=== PATIENT | male | born 1965 | race Caucasian/White ===

== ENCOUNTER 2017-08-21 09:25 | Inpatient (IN) | payer SELFPAY ==
[~2017-08-21] VITALS: Ht 188 cm; Wt 127.0 kg
[2017-08-21 09:40] VITALS: BP 126/93
--- NOTE | 2017-08-21 10:06 | Emergency Room Report ---
History of Present Illness General Chief Complaint: Dyspnea/Respdistress Source: Patient Present Illness HPI 52-year-old male, HIV positive, stopped his treatment in April, has not had a recent CD4 count, was undetectable this past January, presenting with shortness of breath, fever. Patient states that he was walking his dog this morning, became short of breath. States that he has had some intermittent fevers with a nonproductive cough for the last 3 days. One episode of diarrhea. No vomiting. No sick contacts recent travel Allergies: Coded Allergies: No Known Allergies (Verified , 08/23/11) Patient History Past Medical History: see triage record Past Surgical History: none Pertinent Family History: none Reviewed Nursing Documentation: PMH: Agreed, PSxH: Agreed Review of Systems All Other Systems: negative except mentioned in HPI Physical Exam Vital Signs Date Time Temp Pulse Resp B/P (MAP) Pulse Ox O2 Delivery O2 Flow Rate FiO2 08/21/17 09:09 99.1 140 19 106/74 93 Room Air Sp02 EP Interpretation: reviewed, normal General Appearance: alert, GCS 15, non-toxic, mild distress Head: normocephalic, atraumatic Eyes: bilateral eye normal inspection, bilateral eye PERRL, bilateral eye EOMI ENT: normal ENT inspection, normal pharynx, normal voice, moist mucus membranes Neck: normal inspection, full range of motion, supple Respiratory: normal inspection, lungs clear, normal breath sounds, no respiratory distress, no retraction, no wheezing, speaking full sentences, chest symmetrical Cardiovascular #1: normal inspection, regular rate, rhythm, no edema, normal capillary refill Cardiovascular #2: 2+ radial (R), 2+ radial (L) Gastrointestinal: normal inspection, non tender, soft, non-distended, no guarding Genitourinary: no CVA tenderness Musculoskeletal: normal inspection, back normal, normal range of motion, non- tender Neurologic: normal inspection, alert, oriented x3, responsive, motor strength/ tone normal, sensory intact, normal gait, speech normal Psychiatric: normal inspection, judgement/insight normal, memory normal Skin: normal inspection, normal color, no rash, warm/dry, well hydrated, normal turgor Procedures Critical Care Time Critical Care Time 40 minutes of CC time 52-year-old male, shortness of breath, cough, hx of HIV VS: Tachycardic PLAN: IV access, labs, lactate, troponin, Blood/Urine Cx, Abx, IVF Anticipate admission to Tele vs. PATRICIA CC time also includes review of labs, review of EMR, discussion with family and paperwork from SNF, d/w hospitalist CC could include dosing of pressors, additional Abx CC time does not include procedures Medical Decision Making Diagnostic Impression: Primary Impression: Dyspnea Additional Impressions: NSTEMI (non-ST elevated myocardial infarction) Hypokalemia HIV (human immunodeficiency virus infection) Pneumonia ER Course 52-year-old male, presents with cough fever shortness of breath for 2-3 days, HIV-positive not on medication DDX: Viral URI vs. pneumonia Plan: Labs, CXR ER course: Patient given tylenol IVF CXR with instertitial infiltrate - developing R sided pna - levaquin given hypokalemia - supplemented trop noted to be mildly elevated - ASA given HR improved to 100 Disposition: Patient is to be admitted to tele D/W hospitalist Dr Albrecht Please note that this Emergency Department Report was dictated using [email or web address] sales representative technology software, occasionally this can lead to erroneous entry secondary to interpretation by the dictation equipment EKG Diagnostic Results EP Interpretation: Yes Rate: Tachycardic Rhythm: NSR ST Segments: No acute changes ASA given to patient: No Rhythm Strip EP Interpretation: Yes Rate: 130 Rhythm: NSR, no PVCs, no ectopy Chest X-ray CXR: Ordered: Yes 1 view Indication: Cough EP interpretation: Yes Interpretation: Interstitial infiltrate mostly on right side Impression: Interstitial infiltrate mostly in right-sided Electronically signed by Jill Boyd MD Laboratory Tests Test 08/21/17 09:20 08/21/17 09:40 Urine Color Yellow Urine Appearance Clear Urine pH 7 (4.5-8.0) Urine Specific [place] 1.010 (1.005-1.035) Urine Protein 1+ (NEGATIVE) H Urine Glucose (UA) Negative (NEGATIVE) Urine Ketones Negative (NEGATIVE) Urine Occult Blood Negative (NEGATIVE) Urine Nitrite Negative (NEGATIVE) Urine Bilirubin Negative (NEGATIVE) Urine Urobilinogen Normal MG/DL (0.0-1.0) Urine Leukocyte Esterase Negative (NEGATIVE) Urine RBC 0-2 /HPF (0 - 0) H Urine WBC 0-2 /HPF (0 - 0) Urine Squamous Epithelial Cells Occasional /LPF Urine Bacteria Occasional /HPF (NONE) Urine Mucus Few /LPF (NONE/OCC) H White Blood Count 9.9 K/UL (4.8-10.8) Red Blood Count 5.36 M/UL (4.70-6.10) Hemoglobin 15.4 G/DL (14.2-18.0) Hematocrit 46.1 % (42.0-52.0) Mean Corpuscular Volume 86 FL (80-99) Mean Corpuscular Hemoglobin 28.8 PG (27.0-31.0) Mean Corpuscular Hemoglobin Concent 33.4 G/DL (32.0-36.0) Red Cell Distribution Width 11.6 % (11.6-14.8) Platelet Count 115 K/UL (150-450) L Mean Platelet Volume 16.5 FL (6.5-10.1) H Neutrophils (%) (Auto) % (45.0-75.0) Lymphocytes (%) (Auto) % (20.0-45.0) Monocytes (%) (Auto) % (1.0-10.0) Eosinophils (%) (Auto) % (0.0-3.0) Basophils (%) (Auto) % (0.0-2.0) Differential Total Cells Counted 100 Neutrophils % (Manual) 72 % (45-75) Lymphocytes % (Manual) 17 % (20-45) L Monocytes % (Manual) 8 % (1-10) Eosinophils % (Manual) 1 % (0-3) Basophils % (Manual) 0 % (0-2) Band Neutrophils 2 % (0-8) Platelet Estimate Decreased L Platelet Morphology Clumped Platelets 1+ Red Blood Cell Morphology Normal Sodium Level 137 MMOL/L (136-145) Potassium Level 4.2 MMOL/L (3.5-5.1) Chloride Level 100 MMOL/L (98-107) Carbon Dioxide Level 30 MMOL/L (21-32) Anion Gap 8 mmol/L (5-15) Blood Urea Nitrogen 11 mg/dL (7-18) Creatinine 1.1 MG/DL (0.55-1.30) Estimate Glomerular Filtration Rate > 60 mL/min (>60) Glucose Level 106 MG/DL (74-106) Lactic Acid Level 2.70 mmol/L (0.66-2.22) H Calcium Level 8.2 MG/DL (8.5-10.1) L Total Bilirubin 1.3 MG/DL (0.2-1.0) H Direct Bilirubin 0.2 MG/DL (0.0-0.3) Aspartate Amino Transferase (AST) 28 U/L (15-37) Alanine Aminotransferase (ALT) 36 U/L (12-78) Alkaline Phosphatase 72 U/L (46-116) Troponin I 0.390 ng/mL (0.000-0.056) Total Protein 8.9 G/DL (6.4-8.2) H Albumin 3.9 G/DL (3.4-5.0) Globulin 5.0 g/dL Last Vital Signs Date Time Temp Pulse Resp B/P (MAP) Pulse Ox O2 Delivery O2 Flow Rate FiO2 08/21/17 09:40 99.0 133 16 126/93 95 Room Air Disposition: ADMITTED INPATIENT Condition: Serious Scripts No Active Prescriptions or Reported Jefs Jill Boyd M.D. Aug 21, 2017 10:06
[2017-08-21] MEDS ORDERED: Acetaminophen 500mg (ES) tab ORAL ONE (10:15)
[2017-08-21 10:40] LABS: ANION GAP 8 mmol/L (5-15); BLOOD UREA NITROGEN 11 mg/dL (7-18); CALCIUM 8.2 MG/DL (8.5-10.1); CARBON DIOXIDE 30 MMOL/L (21-32); CHLORIDE 100 MMOL/L (98-107); CREATININE 1.1 MG/DL (0.55-1.30); POTASSIUM 4.2 MMOL/L (3.5-5.1); SODIUM 137 MMOL/L (136-145)
[2017-08-21 10:41] LABS: HEMATOCRIT 46.1 % (42.0-52.0); HEMOGLOBIN 15.4 G/DL (14.2-18.0); MEAN CORPUSCULAR VOLUME 86 FL (80-99); RED BLOOD COUNT 5.36 M/UL (4.70-6.10); RED CELL DISTRIBUTION WIDTH 11.6 % (11.6-14.8); WHITE BLOOD COUNT 9.9 K/UL (4.8-10.8)
[2017-08-21 10:46] LABS: APPEARANCE,URINE CLEAR; BILIRUBIN, URINE NEGATIVE (NEGATIVE); GLUCOSE, URINE (UA) NEGATIVE (NEGATIVE); KETONES,URINE NEGATIVE (NEGATIVE); LEUKOCYTE ESTERASE ,URINE NEGATIVE (NEGATIVE); NITRITE,URINE NEGATIVE (NEGATIVE); PH,URINE 7 (4.5-8.0); PROTEIN,URINE 1+ (NEGATIVE); UROBILINOGEN,URINE NORMAL MG/DL (0.0-1.0)
[2017-08-21 10:46] LABS: ALANINE AMINOTRANSFERASE 36 U/L (12-78); ALBUMIN 3.9 G/DL (3.4-5.0); ALKALINE PHOSPHATASE 72 U/L (46-116); ASPARTATE AMINO TRANSFERASE 28 U/L (15-37); BILIRUBIN,TOTAL 1.3 MG/DL (0.2-1.0)
[2017-08-21 10:52] LABS: COLOR,URINE YELLOW
[2017-08-21 10:58] LABS: BILIRUBIN,DIRECT 0.2 MG/DL (0.0-0.3)
[2017-08-21 11:27] LABS: PLATELET COUNT 115 K/UL (150-450)
--- NOTE | 2017-08-21 11:33 | Diagnostic Imaging Report ---
Indication: Dyspnea Technique: XRAY Chest 1v Comparison: None Findings: Heart size and mediastinal contours are within normal limits. There is slight interstitial prominence, left greater than right. Patchy right basilar opacity noted. No pleural effusion. No pneumothorax. Impression: Interstitial prominence, right greater than left with patchy right basilar opacity. Correlate clinically to exclude developing pneumonia. Follow-up exam recommended.
[2017-08-21 15:00] VITALS: BP 127/74
--- NOTE | 2017-08-21 16:27 | Consultation ---
Consult Note Consult Note dict community acquired pneumonia ACS, high troponin HIV zithro/ceftriaxone T cells/HIV load VIDA ARCEO Aug 21, 2017 16:27
[2017-08-21] MEDS ORDERED: Azithromycin 250mg tab ORAL ONE (16:30)
--- NOTE | 2017-08-21 17:15 | Consultation ---
DATE OF CONSULTATION: 08/21/2017 PULMONARY CONSULTATION CHIEF COMPLAINT: Short of breath. HISTORY OF PRESENT ILLNESS: This is a 52-year-old man with human immunodeficiency virus. He says that he came to the emergency department today because of several days of increasing shortness of breath. He states that he cannot walk more than 10 feet walk with his dog before he has to stop and catch his breath. He had a low-grade fever up to about 100.5 and some nonproductive cough over the past few days. He has no vomiting, but had minimal diarrhea. He has a history of human immunodeficiency virus and he has been off his HIV medications due to insurance problems for the past three months. He states his viral load was undetectable when he was on medication, but does not know his T-cell count. MEDICATIONS: None. ALLERGIES: None. REVIEW OF SYSTEMS: Otherwise unremarkable. He has not lost a significant amount of weight. PHYSICAL EXAMINATION: GENERAL: The patient is alert and responsive. He is not in distress. VITAL SIGNS: When he arrived in the emergency department, his heart rate was 140, respirations 19, temp 99.1, and blood pressure 106/74. Since that time, his heart rate has improved to 106 and respirations 14 and room air saturation is 93% to 95%. He is overweight. HEENT: The head is normocephalic. NECK: No jugular venous distention. CHEST: Fairly clear. CARDIAC: Rhythm is regular. Tachycardia. ABDOMEN: Soft and nontender. EXTREMITIES: No clubbing, cyanosis, or edema. LABORATORY DATA: Laboratory studies show urinalysis is negative. The white count is 9900, hemoglobin is 15.4, and platelets 115,000. Chemistry shows an elevated lactic acid, mild increase in bilirubin, and troponin is 0.39. Total protein is elevated at 8.9. Chest x-ray shows focal right base infiltrate. IMPRESSION: 1. Dyspnea. 2. Pneumonia, unlikely to be pneumocystis, more likely bacterial or viral. 3. Possible acute myocardial infarction. 4. Human immunodeficiency virus, without medication for three months. 5. Thrombocytopenia. 6. Elevated protein level and bilirubin. PLAN: 1. The patient shall be admitted. 2. Antibacterial antibiotics for community-acquired pneumonia would be appropriate here. 3. We will check his T-cell panel and viral load. Thank you for asking me to see him in consultation. Patricio Donovan M.D. DR: JULIO CESAR JOB#: [id number] CC: Patricio Donovan M.D.; Fax#: [phone] ALYSSA MENDIOLA M.D. ; FAX#: [phone]
[2017-08-21 18:30] VITALS: BP 119/82
[2017-08-22] VITALS (10 sets, daily range): BP systolic 98–138; BP diastolic 55–90
[2017-08-22] MEDS: Albuterol/Ipratropium 3ml neb HHN PRN ×3 (02:51→17:07)
[2017-08-22] MEDS ORDERED: Albuterol/Ipratropium 3ml neb HHN SCH (05:00)
[2017-08-22] MEDS: Azithromycin 250mg tab ORAL SCH (08:36)
[2017-08-22] MEDS: cefTRIAXone 1 GM in NS 55 ML IVPB SCH (09:23)
[2017-08-22 09:44] LABS: HEMOGLOBIN 13.8 G/DL (14.2-18.0); MEAN CORPUSCULAR VOLUME 87 FL (80-99); PLATELET COUNT 71 K/UL (150-450); RED BLOOD COUNT 4.84 M/UL (4.70-6.10); RED CELL DISTRIBUTION WIDTH 11.8 % (11.6-14.8); WHITE BLOOD COUNT 9.6 K/UL (4.8-10.8)
[2017-08-22 10:02] LABS: ANION GAP 9 mmol/L (5-15); BLOOD UREA NITROGEN 14 mg/dL (7-18); CALCIUM 8.1 MG/DL (8.5-10.1); CARBON DIOXIDE 26 MMOL/L (21-32); CHLORIDE 100 MMOL/L (98-107); POTASSIUM 4.4 MMOL/L (3.5-5.1); SODIUM 135 MMOL/L (136-145)
--- NOTE | 2017-08-22 12:06 | Diagnostic Imaging Report ---
Indication: Shortness of breath, fever. HIV positive. Technique: CT scan of the chest was performed after administration of intravenous contrast utilizing automated exposure control. Axial, sagittal and coronal reformats obtained. Comparison: No prior chest CTs available for comparison. Correlation made to concurrent chest radiograph. Findings: There are scattered, patchy areas of groundglass opacification in the lungs bilaterally, most pronounced in the right lower lobe. There are trace bilateral pleural effusions. There is no pneumothorax. Heart size within normal limits. There is trace pericardial fluid. The thoracic aorta is normal in caliber. No evidence suggest aortic dissection. Origins of the great vessels are widely patent. The main pulmonary artery is enlarged, measuring up to 3.9 cm in diameter. This may be related to pulmonary hypertension. There are small mediastinal and bilateral axillary lymph nodes. Imaged thyroid is grossly unremarkable. There is a small hiatal hernia with adjacent prominent lymph nodes. There is probable fatty infiltration of the liver and mild splenomegaly. There are multilevel degenerative changes of the thoracic spine. No acute osseous abnormality is seen. Impression: Patchy bilateral groundglass opacities, most pronounced in the right lower lobe. Findings are nonspecific and may infectious or inflammatory etiology. Infectious etiologies would include atypical and fungal infections. Clinical correlation recommended. Multiple prominent nonspecific mediastinal lymph nodes. Enlarged main pulmonary artery which may be related to pulmonary hypertension. Probable hepatic steatosis. Probable splenomegaly. This corresponds with the [facility] preliminary report.
--- NOTE | 2017-08-22 12:39 | Pulmonology Progress Note ---
Assessment/Plan Assessment/Plan 1. Dyspnea. 2. Pneumonia, possible pneumocystis, more likely bacterial or viral. 3. Possible acute myocardial infarction. 4. Human immunodeficiency virus, without medication for three months. 5. Thrombocytopenia. 6. Elevated protein level and bilirubin. note high LDH and interstitial disease on CT feeling better rec ID consult may add PCP coverage Subjective Constitutional: Reports: fever Respiratory: Reports: productive cough, shortness of breath Allergies: Coded Allergies: No Known Allergies (Verified , 08/23/11) Objective Last 24 Hour Vital Signs Date Time Temp Pulse Resp B/P (MAP) Pulse Ox O2 Delivery O2 Flow Rate FiO2 08/22/17 10:43 36 08/22/17 10:43 95 20 96 Nasal Cannula 2.0 28 08/22/17 10:40 95 20 Nasal Cannula 2.0 08/22/17 10:40 Nasal Cannula 2.0 28 08/22/17 10:40 96 Nasal Cannula 2.0 28 08/22/17 08:00 99.7 83 18 116/72 95 Nasal Cannula 2.0 08/22/17 08:00 107 08/22/17 04:00 98.0 77 20 138/60 98 Room Air 08/22/17 04:00 97 08/22/17 03:29 98.8 08/22/17 02:54 91 18 98 Nasal Cannula 2.0 28 08/22/17 02:48 36 08/22/17 02:48 99 20 96 Nasal Cannula 2.0 28 08/22/17 02:15 100.1 98 18 111/73 91 Nasal Cannula 2.0 98 08/22/17 01:29 98.0 100 18 122/88 94 Nasal Cannula 2.0 90 08/22/17 01:13 98.0 90 18 122/88 94 Nasal Cannula 2.0 08/22/17 00:00 99.2 100 18 128/90 94 Nasal Cannula 2.0 08/21/17 18:30 99.2 100 18 119/82 94 Nasal Cannula 2.0 08/21/17 16:15 98 20 Nasal Cannula 2.0 08/21/17 15:00 106 14 127/74 95 Room Air Intake and Output 08/21/17 08/22/17 19:00 07:00 Intake Total 0 ml Balance 0 ml Intake Oral 0 ml # Voids 2 General Appearance: no acute distress Respiratory/Chest: lungs clear Cardiovascular: normal rate Abdomen: soft, non tender Microbiology Date/Time Source Procedure Growth Status 08/21/17 11:20 Nasal Nares Influenza Types A,B Antigen (RUBEN) - Final Complete Laboratory Tests 08/21/17 18:20: White Blood Count [Pending], Lymphocytes [Pending], Percent CD3 Cells [Pending] , Absolute CD3 Count [Pending], Percent CD4 Cells [Pending], Absolute CD4 Count [Pending], T-Lymphocyte CD4/CD8 Ratio [Pending], Percent CD8 Cells [Pending], Absolute CD8 Count [Pending], HIV-1 RNA (PCR) log10 Value [Pending], HIV-1 RNA Ultraquantitative (PCR) [Pending] 08/22/17 08:45: White Blood Count 9.6, Red Blood Count 4.84, Hemoglobin 13.8L, Hematocrit 42.0, Mean Corpuscular Volume 87, Mean Corpuscular Hemoglobin 28.5, Mean Corpuscular Hemoglobin Concent 32.8, Red Cell Distribution Width 11.8, Platelet Count 71L, Mean Platelet Volume 8.1, Neutrophils (%) (Auto) , Lymphocytes (%) (Auto) , Monocytes (%) (Auto) , Eosinophils (%) (Auto) , Basophils (%) (Auto) , Differential Total Cells Counted 100, Neutrophils % (Manual) 64, Lymphocytes % ( Manual) 24, Monocytes % (Manual) 11H, Eosinophils % (Manual) 1, Basophils % ( Manual) 0, Band Neutrophils 0, Platelet Estimate DecreasedL, Platelet Morphology , Clumped Platelets 1+, Red Blood Cell Morphology Normal, Sodium Level 135L, Potassium Level 4.4, Chloride Level 100, Carbon Dioxide Level 26, Anion Gap 9, Blood Urea Nitrogen 14, Creatinine 1.0, Estimat Glomerular Filtration Rate > 60, Glucose Level 114H, Calcium Level 8.1L, Lactate Dehydrogenase 372H, Troponin I 0.355H, Legionella pneumophila Group 1 Ab [ Pending], Legionella pneumophilia IgM Group 1 [Pending], Mycoplasma pneumoniae IgG Antibody [Pending], Mycoplasma pneumoniae IgM Ab Titer [Pending] Current Medications Medications (Trade) Dose Ordered Sig/Jameel Route PRN Reason Start Time Stop Time Status Last Admin Dose Admin Acetaminophen (Tylenol) 650 mg Q4H PRN ORAL pain/fever >100 08/22/17 02:30 09/21/17 01:29 08/22/17 11:57 Albuterol/ Ipratropium (Albuterol/ Ipratropium) 3 ml Q4HR PRN HHN Shortness of Breath 08/22/17 05:00 08/27/17 04:59 08/22/17 10:43 Azithromycin (Zithromax) 250 mg DAILY ORAL 08/22/17 09:00 08/29/17 08:59 08/22/17 08:36 Ceftriaxone Sodium 1 gm/ Sodium Chloride 55 ml @ 110 mls/hr Q24H IVPB 08/22/17 09:00 08/29/17 08:59 08/22/17 09:23 Guaifenesin/ Dextromethorphan (Robitussin DM) 5 ml Q4H PRN ORAL For Cough 08/22/17 01:30 09/21/17 01:29 VIDA ARCEO Aug 22, 2017 12:39
--- NOTE | 2017-08-22 15:41 | Cardiology Report ---
APPROVED REPORT EXAM: Two-dimensional and M-mode echocardiogram with Doppler and color Doppler. INDICATION Chest Pain M-Mode DIMENSIONS IVSd1.9 (0.7-1.1cm)Left Atrium (MM)2.8 (1.6-4.0cm) LVDd3.7 (3.5-5.6cm)Aortic Root4.3 (2.0-3.7cm) PWd1.5 (0.7-1.1cm)Aortic Cusp Exc.1.9 (1.5-2.0cm) IVSs2.7 cm LVDs2.2 (2.5-4.0cm) PWs1.5 cm Technically difficult study due to poor acoustical windows . Normal left ventricular chamber size, systolic function and wall motion to extent visualized. Left ventricular ejection fraction estimated to be 60%. No evidence of ventricular hypertrophy . No evidence of pericardial effusion All other cardiac chamber size are within normal limits. Mild Thickened mitral valve leaflets with normal excursion. Mild Mitral annulus and aortic root calcification. Pulmonic valve not well visualized. Normal tricuspid valve structure. IVC at normal size with physiologic collapse . A color flow and spectral Doppler study was performed and revealed: No aortic regurgitation. Mild mitral regurgitation. Mitral diastolic velocities suggest reduced left ventricular relaxation c/w mild LV diastolic dysfunction (Grade I ). Mild tricuspid regurgitation. Tricuspid systolic velocities suggests peak right ventricular systolic pressure of 37 mmHg consistent with mild pulmonary hypertension. No Pulmonic regurgitation present.
--- NOTE | 2017-08-22 16:17 | Cardiology Report ---
APPROVED REPORT EKG Measurement Heart [id number] Sinus tachycardia Incomplete right bundle branch block Left anterior fascicular block Abnormal ECG
--- NOTE | 2017-08-22 16:28 | Cardiac Electrophysiology PN ---
Subjective Subjective Cardiology consult dictated. [id number] Objective Last 24 Hour Vital Signs Date Time Temp Pulse Resp B/P (MAP) Pulse Ox O2 Delivery O2 Flow Rate FiO2 08/22/17 12:56 99.7 08/22/17 12:00 104 08/22/17 10:43 36 08/22/17 10:43 95 20 96 Nasal Cannula 2.0 28 08/22/17 10:40 95 20 Nasal Cannula 2.0 08/22/17 10:40 Nasal Cannula 2.0 28 08/22/17 10:40 96 Nasal Cannula 2.0 28 08/22/17 08:00 99.7 83 18 116/72 95 Nasal Cannula 2.0 08/22/17 08:00 107 08/22/17 04:00 98.0 77 20 138/60 98 Room Air 08/22/17 04:00 97 08/22/17 02:54 91 18 98 Nasal Cannula 2.0 28 08/22/17 02:48 36 08/22/17 02:48 99 20 96 Nasal Cannula 2.0 28 08/22/17 02:15 100.1 98 18 111/73 91 Nasal Cannula 2.0 98 08/22/17 01:29 98.0 100 18 122/88 94 Nasal Cannula 2.0 90 08/22/17 01:13 98.0 90 18 122/88 94 Nasal Cannula 2.0 08/22/17 00:00 99.2 100 18 128/90 94 Nasal Cannula 2.0 08/21/17 18:30 99.2 100 18 119/82 94 Nasal Cannula 2.0 Intake and Output 08/21/17 08/22/17 19:00 07:00 Intake Total 0 ml Balance 0 ml Intake Oral 0 ml # Voids 2 Laboratory Tests Test 08/21/17 18:20 08/22/17 08:45 08/22/17 15:00 White Blood Count 6.1 x10E3/uL (3.4-10.8) 9.6 K/UL (4.8-10.8) Lymphocytes 30 % (Not Estab.) Nucleated Red Blood Cells (.) Absolute Lymphocytes (Cell Immunity 1.9 x10E3/uL (0.7-3.1) Percent CD3 Cells 86.8 % (57.5-86.2) H Absolute CD3 Count 1649 /uL (622-2402) Percent CD4 Cells 10.1 % (30.8-58.5) L Absolute CD4 Count 192 /uL (359-1519) L T-Lymphocyte CD4/CD8 Ratio 0.13 (0.92-3.72) L Percent CD8 Cells 77.9 % (12.0-35.5) H Absolute CD8 Count 1480 /uL (109-897) H HIV-1 RNA (PCR) log10 Value Pending HIV-1 RNA Ultraquantitative (PCR) Pending Red Blood Count 4.84 M/UL (4.70-6.10) Hemoglobin 13.8 G/DL (14.2-18.0) L Hematocrit 42.0 % (42.0-52.0) Mean Corpuscular Volume 87 FL (80-99) Mean Corpuscular Hemoglobin 28.5 PG (27.0-31.0) Mean Corpuscular Hemoglobin Concent 32.8 G/DL (32.0-36.0) Red Cell Distribution Width 11.8 % (11.6-14.8) Platelet Count 71 K/UL (150-450) L Mean Platelet Volume 8.1 FL (6.5-10.1) Neutrophils (%) (Auto) % (45.0-75.0) Lymphocytes (%) (Auto) % (20.0-45.0) Monocytes (%) (Auto) % (1.0-10.0) Eosinophils (%) (Auto) % (0.0-3.0) Basophils (%) (Auto) % (0.0-2.0) Differential Total Cells Counted 100 Neutrophils % (Manual) 64 % (45-75) Lymphocytes % (Manual) 24 % (20-45) Monocytes % (Manual) 11 % (1-10) H Eosinophils % (Manual) 1 % (0-3) Basophils % (Manual) 0 % (0-2) Band Neutrophils 0 % (0-8) Platelet Estimate Decreased L Platelet Morphology Clumped Platelets 1+ Red Blood Cell Morphology Normal Sodium Level 135 MMOL/L (136-145) L Potassium Level 4.4 MMOL/L (3.5-5.1) Chloride Level 100 MMOL/L (98-107) Carbon Dioxide Level 26 MMOL/L (21-32) Anion Gap 9 mmol/L (5-15) Blood Urea Nitrogen 14 mg/dL (7-18) Creatinine 1.0 MG/DL (0.55-1.30) Estimat Glomerular Filtration Rate > 60 mL/min (>60) Glucose Level 114 MG/DL (74-106) H Calcium Level 8.1 MG/DL (8.5-10.1) L Lactate Dehydrogenase 372 U/L (81-234) H Troponin I 0.355 ng/mL (0.000-0.056) Legionella pneumophila Group 1 Ab Pending Legionella pneumophilia IgM Group 1 Pending Mycoplasma pneumoniae IgG Antibody Pending Mycoplasma pneumoniae IgM Ab Titer Pending Microbiology Date/Time Source Procedure Growth Status 08/21/17 11:20 Nasal Nares Influenza Types A,B Antigen (RUBEN) - Final Complete CELINA LUNA Aug 22, 2017 16:28
--- NOTE | 2017-08-22 16:30 | Consultation ---
DATE OF CONSULTATION: 08/22/2016 INFECTIOUS DISEASES CONSULTATION This consultation has been done on behalf of Dr. Lexa Smith. CONSULTING PHYSICIAN: Cruz Abraham M.D. REFERRING PHYSICIAN: Latisha Crenshaw M.D. REASON FOR CONSULTATION: Pneumonia. HISTORY OF PRESENTING ILLNESS: This is a 52-year-old gentleman with history of HIV with unknown T-cell count, not on antiretrovirals, who came in because he had fever and chills, shortness of breath, and a dry cough. He had some vomiting. An Infectious Diseases consultation has been obtained for antibiotics. PAST MEDICAL HISTORY: History of HIV. No history of any opportunistic infections like syphilis, gonorrhea, or chlamydia. No history of hepatitis. No history of diabetes, hypertension, or asthma. MEDICATIONS: As an inpatient, he is on ceftriaxone, azithromycin, albuterol, Tylenol, and Robitussin. ALLERGIES: No known drug allergies. SOCIAL HISTORY: He does not smoke. He drinks alcohol socially. He also chews marijuana. FAMILY HISTORY: Positive for cancers and heart disease. REVIEW OF SYSTEMS: RESPIRATORY: He has fever and chills. He has a dry cough. He has shortness of breath. He did have some pleuritic chest pain. CARDIAC: . No palpitations. No dizziness. No syncope. GASTROINTESTINAL: No nausea. No vomiting. No abdominal pain or diarrhea. PHYSICAL EXAMINATION: VITAL SIGNS: Temperature of 99.7 degrees, T-max of 100.1 degrees, pulse of 95, respiratory rate 20, blood pressure of 116/72, O2 saturation of 96%. HEENT: Pupils equally reactive to light and accommodation. Mouth appears clean without thrush. NECK: Supple. No adenopathy. No JVD. CARDIOVASCULAR: Regular rate and rhythm. No murmurs. LUNGS: Clear to auscultation bilaterally. No crackles. No wheezes. ABDOMEN: Soft and nontender. No organomegaly. EXTREMITIES: No cyanosis, no clubbing, no edema. LABORATORY DATA: White count 9.6, hemoglobin 13.8, hematocrit 42, MCV 87, platelet count of 71 with neutrophils of 64%. Sodium 135, potassium 4.4, chloride 100, bicarb 26, BUN 14, creatinine 1, glucose 114. Calcium 8.1. Total bilirubin 1.3, direct bilirubin 0.2, AST 28, ALT 36, alkaline phosphatase 72. Troponin 0.35. UA is showing 0 to 2 white cells. HIV viral load pending. T-cell count is pending. Nasal swab was negative for influenza A and B. Chest x-ray is showing interstitial prominence right greater than the left with patchy right base opacity. ASSESSMENT: This is a 52-year-old gentleman with history of human immunodeficiency virus with unknown T-cell count, who comes in with cough, shortness of breath, and fevers. I would be concern regarding community-acquired pneumonia versus atypical pneumonia. We would also like to rule out PCP as a possibility. PLAN: 1. Continue ceftriaxone and azithromycin. 2. We will follow up T-cell count and HIV viral load. 3. We will order an LDH. 4. We will order for serum Legionella antibody. 5. We will order for mycoplasma serology. 6. We will order sputum for Gram stain and culture. 7. We will follow up cultures and adjust antibiotics accordingly. I would like to thank, Dr. Crenshaw, today for this consultation. Cruz Abraham M.D. DR: Manjeet JOB#: [id number] CC: Latisha Crenshaw M.D.; Fax#: [phone]
--- NOTE | 2017-08-22 17:15 | Consultation ---
DATE OF CONSULTATION: 08/22/2017 CARDIOLOGY CONSULTATION CONSULTING PHYSICIAN: Tim Phillips M.D. REFERRING PHYSICIAN: Latisha Crenshaw M.D. REASON FOR CONSULTATION: Shortness of breath. HISTORY OF PRESENT ILLNESS: The patient is a 52-year-old gentleman with history of human immunodeficiency virus, who lost his insurance this April and has not been taking any of his human immunodeficiency virus medications since then. The patient came to the emergency room for several days of increasing shortness of breath and he cannot walk more than 10 feet with his dog before he stops to catch his breath. The patient also had low-grade fever at 100.5 and nonproductive cough. He denies any prior myocardial infarction or congestive heart failure or known coronary artery disease. PAST MEDICAL HISTORY: As mentioned above. MEDICATIONS: He is on no medication at home. ALLERGIES: He has no known drug allergies. FAMILY HISTORY: Noncontributory. SOCIAL HISTORY: He lives at home. He does not smoke or drink alcohol. REVIEW OF SYSTEMS: Negative other than what was mentioned in the history of present illness. PHYSICAL EXAMINATION: VITAL SIGNS: Blood pressure is 106/70, pulse initially was 130s, currently is 90, respirations 18, and his temperature is 99.1. HEAD AND NECK: Showed no JVD. LUNGS: Clear. CARDIOVASCULAR: Shows tachycardic S1, S2 with no gallop. ABDOMEN: Soft. EXTREMITIES: No pitting edema. LABORATORY DATA: His laboratory show white count of 9.6, hemoglobin 13.9, hematocrit of 42, and platelet count of 71,000. His sodium is 135, potassium is 4.4, BUN of 14, creatinine 1, and glucose of 114. Troponin 0.39 and 0.355. ASSESSMENT AND PLAN: 1. Troponin elevation. Levels are flat at 0.3 and 0.3. The patient does not have any chest pain. The patient, however, does not have renal failure either. He underwent an echocardiogram that showed normal left ventricular systolic function. His EKG also showed sinus rhythm with incomplete right bundle-branch block and left axis deviation. We will schedule the patient for nuclear stress test for further evaluation and management. 2. Human immunodeficiency virus. Further evaluation by Infectious Disease. 3. Possible pneumonia. On azithromycin, ceftriaxone, and albuterol. 4. Thrombocytopenia. Thank you very much, Dr. Crenshaw, for allowing me to participate in the care of this patient. Please do not hesitate to contact me for any questions regarding my evaluation. Tim Phillips M.D. DR: SUNNI JOB#: [id number] CC:
--- NOTE | 2017-08-22 21:17 | History and Physical Report ---
DATE OF ADMISSION: 08/21/2017 HISTORY OF PRESENT ILLNESS: The patient comes in with a history of HIV, with three days shortness of breath and cough, nonproductive. The patient also has pleuritic chest pain, made worse by deep inspiration for the past three days. The patient also has a history of intermittent migraine headaches. The patient feels very weak and fatigued. He has also a history of sleep apnea. The patient is also being admitted for chest pain, non-STEMI, possible pleurisy as well as rule out pneumonia. PAST MEDICAL HISTORY: Significant for HIV, migraine headache, and sleep apnea. PAST SURGICAL HISTORY: Right knee surgery, left knee surgery, and bilateral arm surgery. SOCIAL HISTORY: He has a history of smoking, history of drug and alcohol abuse. Lives at home by himself. FAMILY HISTORY: Noncontributory. REVIEW OF SYSTEMS: HEENT: Headaches. RESPIRATORY: Reports shortness of breath and nonproductive cough for the past three days. CARDIOVASCULAR: Chest pain. GI: Denies nausea, vomiting, or diarrhea. EXTREMITIES: Denies any significant pain. CENTRAL NERVOUS SYSTEM: No change in vision or speech pattern. Feels weak. PHYSICAL EXAMINATION: VITAL SIGNS: Temperature is 98 degrees, pulse is 77, and blood pressure 138/60. HEENT: PERRLA. NECK: Supple. CHEST: Clear to auscultation. CARDIOVASCULAR: Regular rate and rhythm. No murmurs or extra sounds. GASTROINTESTINAL: Soft, nontender, and nondistended. No organomegaly. EXTREMITIES: 1+ edema. Reflexes are equal on both sides. Moves all four extremities. Sensory intact to light touch. LABORATORY AND DIAGNOSTIC DATA: WBC of 9.9, hemoglobin of 15.4, and platelets of 115. Sodium 135, potassium 4.4, BUN of 14, creatinine 1, and glucose of 114. Troponin of 0.39. EKG demonstrates ST elevation. A chest CT shows nonspecific mediastinal lymph nodes, enlarged main pulmonary artery, hepatic steatosis, probable splenomegaly, and ground-glass opacities, most pronounced in the right lower lobe. Findings are nonspecific apparently per radiologist. ASSESSMENT AND PLAN: 1. Rule out pneumonia. 2. Pleuritic chest pain. 3. Also, non-ST elevation myocardial infarction. 4. Shortness of breath and cough. 5. I have asked Dr. Phillips, Dr. Marroquin, Jaciel Galicia, and Dr. Donovan to see the patient for the above-mentioned diagnoses and treatment. Latisha Crenshaw M.D. DR: Martinez JOB#: [id number] CC:
[2017-08-23 00:21] VITALS: BP 112/90
[2017-08-23] MEDS: guaiFENesin DM 100mg/5ml ORAL PRN ×2 (01:04→20:58)
[2017-08-23 04:00] VITALS: BP 112/65
[2017-08-23 08:00] VITALS: BP 127/70
[2017-08-23] MEDS ORDERED: Lexiscan 0.4mg/5ml syringe IV PRN (08:00)
[2017-08-23 08:26] LABS: CHOLESTEROL 139 MG/DL (< 200); HDL CHOLESTEROL 31 MG/DL (40-60); TRIGLYCERIDES 84 MG/DL (30-150)
[2017-08-23 08:37] LABS: ANION GAP 9 mmol/L (5-15); BLOOD UREA NITROGEN 15 mg/dL (7-18); CALCIUM 7.7 MG/DL (8.5-10.1); CARBON DIOXIDE 29 MMOL/L (21-32); CHLORIDE 99 MMOL/L (98-107); POTASSIUM 4.2 MMOL/L (3.5-5.1); SODIUM 136 MMOL/L (136-145)
[2017-08-23 08:40] LABS: HEMATOCRIT 41.3 % (42.0-52.0); HEMOGLOBIN 13.1 G/DL (14.2-18.0); MEAN CORPUSCULAR VOLUME 88 FL (80-99); PLATELET COUNT 69 K/UL (150-450); RED BLOOD COUNT 4.68 M/UL (4.70-6.10); RED CELL DISTRIBUTION WIDTH 11.9 % (11.6-14.8)
[2017-08-23] MEDS: cefTRIAXone 1 GM in NS 55 ML IVPB SCH (09:30)
[2017-08-23] MEDS: Azithromycin 250mg tab ORAL SCH (09:30)
--- NOTE | 2017-08-23 11:13 | Infectious Diseases Prog Note ---
Assessment/Plan Assessment/Plan antibiotics : ceftriaxone, azithromycin A 1. pneumonia ? 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 thrombocytopenia P 1. continue ceftriaxone, azithromycin 2. start iv bactrim 3. will follow up cultures Subjective ROS Limited/Unobtainable: Yes Allergies: Coded Allergies: No Known Allergies (Verified , 08/23/11) Objective Vital Signs Last 24 Hour Vital Signs Date Time Temp Pulse Resp B/P (MAP) Pulse Ox O2 Delivery O2 Flow Rate FiO2 08/23/17 07:50 Nasal Cannula 2.0 28 08/23/17 07:50 95 20 Nasal Cannula 2.0 08/23/17 07:50 96 Nasal Cannula 2.0 28 08/23/17 04:00 99.5 89 20 112/65 97 08/23/17 04:00 88 08/23/17 02:25 99.0 08/23/17 00:21 100.2 99 20 112/90 93 Room Air 08/23/17 00:00 96 08/22/17 20:22 109 102/57 08/22/17 20:21 101.7 109 21 102/57 95 Nasal Cannula 2.0 08/22/17 20:15 102.2 105 20 98/55 93 08/22/17 20:00 106 08/22/17 19:00 97 Nasal Cannula 2.0 28 08/22/17 19:00 Nasal Cannula 2.0 28 08/22/17 19:00 109 22 Nasal Cannula 2.0 08/22/17 17:16 82 18 98 Nasal Cannula 2.0 28 08/22/17 17:07 36 08/22/17 17:07 96 18 96 Nasal Cannula 2.0 28 08/22/17 16:00 96 08/22/17 16:00 97.7 100 20 106/76 97 Nasal Cannula 2.0 08/22/17 12:00 99.7 63 18 101/69 95 Nasal Cannula 2.0 08/22/17 12:00 104 Height (Feet): 6 Height (Inches): 2.00 Weight (Pounds): 280 Respiratory/Chest: lungs clear Cardiovascular: normal rate, regular rhythm, no gallop/murmur Abdomen: soft, non tender Extremities: no edema Microbiology Date/Time Source Procedure Growth Status 08/21/17 09:40 Blood Blood Culture - Preliminary NO GROWTH AFTER 24 HOURS Resulted 08/21/17 09:35 Blood Blood Culture - Preliminary NO GROWTH AFTER 24 HOURS Resulted 08/21/17 11:20 Nasal Nares Influenza Types A,B Antigen (RUBEN) - Final Complete Laboratory Tests Test 08/22/17 15:00 08/23/17 05:45 Legionella pneumophila Group 1 Ab Pending Legionella pneumophilia IgM Group 1 Pending Mycoplasma pneumoniae IgG Antibody Pending Mycoplasma pneumoniae IgM Ab Titer Pending White Blood Count 10.0 K/UL (4.8-10.8) Red Blood Count 4.68 M/UL (4.70-6.10) L Hemoglobin 13.1 G/DL (14.2-18.0) L Hematocrit 41.3 % (42.0-52.0) L Mean Corpuscular Volume 88 FL (80-99) Mean Corpuscular Hemoglobin 28.0 PG (27.0-31.0) Mean Corpuscular Hemoglobin Concent 31.7 G/DL (32.0-36.0) L Red Cell Distribution Width 11.9 % (11.6-14.8) Platelet Count 69 K/UL (150-450) L Mean Platelet Volume 7.7 FL (6.5-10.1) Neutrophils (%) (Auto) % (45.0-75.0) Lymphocytes (%) (Auto) % (20.0-45.0) Monocytes (%) (Auto) % (1.0-10.0) Eosinophils (%) (Auto) % (0.0-3.0) Basophils (%) (Auto) % (0.0-2.0) Neutrophils % (Manual) Pending Lymphocytes % (Manual) Pending Platelet Estimate Pending Platelet Morphology Pending Sodium Level 136 MMOL/L (136-145) Potassium Level 4.2 MMOL/L (3.5-5.1) Chloride Level 99 MMOL/L (98-107) Carbon Dioxide Level 29 MMOL/L (21-32) Anion Gap 9 mmol/L (5-15) Blood Urea Nitrogen 15 mg/dL (7-18) Creatinine 1.0 MG/DL (0.55-1.30) Estimat Glomerular Filtration Rate > 60 mL/min (>60) Glucose Level 92 MG/DL (74-106) Calcium Level 7.7 MG/DL (8.5-10.1) L Troponin I 0.143 ng/mL (0.000-0.056) Triglycerides Level 84 MG/DL (30-150) Cholesterol Level 139 MG/DL (< 200) LDL Cholesterol 94 mg/dL (<100) HDL Cholesterol 31 MG/DL (40-60) L Cholesterol/HDL Ratio 4.5 (3.3-4.4) H MYRON OVALLES Aug 23, 2017 11:13
[2017-08-23] MEDS: Albuterol/Ipratropium 3ml neb HHN PRN ×2 (11:36→20:25)
[2017-08-23 12:00] VITALS: BP 112/54
[2017-08-23] MEDS ORDERED: D5W IV SCH (14:00)
[2017-08-23] MEDS ORDERED: BACTRIM IV SCH (14:00)
[2017-08-23 16:00] VITALS: BP 132/70
--- NOTE | 2017-08-23 16:24 | Cardiac Electrophysiology PN ---
Assessment/Plan Assessment/Plan 1. Troponin elevation. Levels are flat at 0.3 and 0.3. The patient does not have any chest pain. The patient, however, does not have renal failure either. He underwent an echocardiogram that showed normal left ventricular systolic function. His EKG also showed sinus rhythm with incomplete right bundle-branch block and left axis deviation. Nuclear stress test rescheduled for tomorrow. 2. Human immunodeficiency virus. Further evaluation by Infectious Disease. 3. Possible pneumonia. On azithromycin, ceftriaxone, and albuterol. 4. Thrombocytopenia. JUANA RN Subjective Subjective Feeling better. No chest pain or SOB. Objective Last 24 Hour Vital Signs Date Time Temp Pulse Resp B/P (MAP) Pulse Ox O2 Delivery O2 Flow Rate FiO2 08/23/17 12:00 91 08/23/17 12:00 100.9 111 18 112/54 98 Nasal Cannula 2.0 08/23/17 11:46 96 20 98 Nasal Cannula 2.0 28 08/23/17 11:46 36 08/23/17 11:40 96 20 94 Nasal Cannula 2.0 28 08/23/17 11:36 94 20 Nasal Cannula 2.0 08/23/17 08:00 97 08/23/17 08:00 98.2 98 19 127/70 96 Nasal Cannula 2.0 08/23/17 07:50 Nasal Cannula 2.0 28 08/23/17 07:50 95 20 Nasal Cannula 2.0 08/23/17 07:50 96 Nasal Cannula 2.0 28 08/23/17 04:00 99.5 89 20 112/65 97 08/23/17 04:00 88 08/23/17 02:25 99.0 08/23/17 00:21 100.2 99 20 112/90 93 Room Air 08/23/17 00:00 96 08/22/17 20:22 109 102/57 08/22/17 20:21 101.7 109 21 102/57 95 Nasal Cannula 2.0 08/22/17 20:15 102.2 105 20 98/55 93 08/22/17 20:00 106 08/22/17 19:00 97 Nasal Cannula 2.0 28 08/22/17 19:00 Nasal Cannula 2.0 28 08/22/17 19:00 109 22 Nasal Cannula 2.0 08/22/17 17:16 82 18 98 Nasal Cannula 2.0 28 08/22/17 17:07 36 08/22/17 17:07 96 18 96 Nasal Cannula 2.0 28 Intake and Output 08/22/17 08/23/17 19:00 07:00 Intake Total 415 ml Output Total 1350 ml 1000 ml Balance -935 ml -1000 ml Intake Oral 360 ml IV Total 55 ml Output Urine Total 1350 ml 1000 ml # Voids 2 Laboratory Tests Test 08/23/17 05:45 White Blood Count 10.0 K/UL (4.8-10.8) Red Blood Count 4.68 M/UL (4.70-6.10) L Hemoglobin 13.1 G/DL (14.2-18.0) L Hematocrit 41.3 % (42.0-52.0) L Mean Corpuscular Volume 88 FL (80-99) Mean Corpuscular Hemoglobin 28.0 PG (27.0-31.0) Mean Corpuscular Hemoglobin Concent 31.7 G/DL (32.0-36.0) L Red Cell Distribution Width 11.9 % (11.6-14.8) Platelet Count 69 K/UL (150-450) L Mean Platelet Volume 7.7 FL (6.5-10.1) Neutrophils (%) (Auto) % (45.0-75.0) Lymphocytes (%) (Auto) % (20.0-45.0) Monocytes (%) (Auto) % (1.0-10.0) Eosinophils (%) (Auto) % (0.0-3.0) Basophils (%) (Auto) % (0.0-2.0) Differential Total Cells Counted 100 Neutrophils % (Manual) 56 % (45-75) Lymphocytes % (Manual) 33 % (20-45) Monocytes % (Manual) 10 % (1-10) Eosinophils % (Manual) 1 % (0-3) Basophils % (Manual) 0 % (0-2) Band Neutrophils 0 % (0-8) Platelet Estimate Decreased L Platelet Morphology Clumped Platelets 1+ Sodium Level 136 MMOL/L (136-145) Potassium Level 4.2 MMOL/L (3.5-5.1) Chloride Level 99 MMOL/L (98-107) Carbon Dioxide Level 29 MMOL/L (21-32) Anion Gap 9 mmol/L (5-15) Blood Urea Nitrogen 15 mg/dL (7-18) Creatinine 1.0 MG/DL (0.55-1.30) Estimat Glomerular Filtration Rate > 60 mL/min (>60) Glucose Level 92 MG/DL (74-106) Calcium Level 7.7 MG/DL (8.5-10.1) L Troponin I 0.143 ng/mL (0.000-0.056) Triglycerides Level 84 MG/DL (30-150) Cholesterol Level 139 MG/DL (< 200) LDL Cholesterol 94 mg/dL (<100) HDL Cholesterol 31 MG/DL (40-60) L Cholesterol/HDL Ratio 4.5 (3.3-4.4) H Microbiology Date/Time Source Procedure Growth Status 08/21/17 09:40 Blood Blood Culture - Preliminary NO GROWTH AFTER 24 HOURS Resulted 08/21/17 09:35 Blood Blood Culture - Preliminary NO GROWTH AFTER 24 HOURS Resulted 08/21/17 11:20 Nasal Nares Influenza Types A,B Antigen (RUBEN) - Final Complete Objective HEAD AND NECK: Showed no JVD. LUNGS: Clear. CARDIOVASCULAR: Tachycardic S1, S2 with no gallop. ABDOMEN: Soft. EXTREMITIES: No pitting edema. CELINA LUNA Aug 23, 2017 16:24
--- NOTE | 2017-08-23 16:49 | Pulmonology Progress Note ---
Assessment/Plan Assessment/Plan 1. Dyspnea. 2. Pneumonia, possible pneumocystis, more likely bacterial or viral. 3. Possible acute myocardial infarction. 4. Human immunodeficiency virus, without medication for three months. 5. Thrombocytopenia. 6. Elevated protein level and bilirubin. started Bactrim ID consult reviewed cardiac eval under way Subjective Respiratory: Reports: shortness of breath Allergies: Coded Allergies: No Known Allergies (Verified , 08/23/11) Objective Last 24 Hour Vital Signs Date Time Temp Pulse Resp B/P (MAP) Pulse Ox O2 Delivery O2 Flow Rate FiO2 08/23/17 16:00 98.8 111 20 132/70 95 Nasal Cannula 2.0 08/23/17 12:00 91 08/23/17 12:00 100.9 111 18 112/54 98 Nasal Cannula 2.0 08/23/17 11:46 96 20 98 Nasal Cannula 2.0 28 08/23/17 11:46 36 08/23/17 11:40 96 20 94 Nasal Cannula 2.0 28 08/23/17 11:36 94 20 Nasal Cannula 2.0 08/23/17 08:00 97 08/23/17 08:00 98.2 98 19 127/70 96 Nasal Cannula 2.0 08/23/17 07:50 Nasal Cannula 2.0 28 08/23/17 07:50 95 20 Nasal Cannula 2.0 08/23/17 07:50 96 Nasal Cannula 2.0 28 08/23/17 04:00 99.5 89 20 112/65 97 08/23/17 04:00 88 08/23/17 02:25 99.0 08/23/17 00:21 100.2 99 20 112/90 93 Room Air 08/23/17 00:00 96 08/22/17 20:22 109 102/57 08/22/17 20:21 101.7 109 21 102/57 95 Nasal Cannula 2.0 08/22/17 20:15 102.2 105 20 98/55 93 08/22/17 20:00 106 08/22/17 19:00 97 Nasal Cannula 2.0 28 08/22/17 19:00 Nasal Cannula 2.0 28 08/22/17 19:00 109 22 Nasal Cannula 2.0 08/22/17 17:16 82 18 98 Nasal Cannula 2.0 28 08/22/17 17:07 36 08/22/17 17:07 96 18 96 Nasal Cannula 2.0 28 Intake and Output 08/22/17 08/23/17 19:00 07:00 Intake Total 415 ml Output Total 1350 ml 1000 ml Balance -935 ml -1000 ml Intake Oral 360 ml IV Total 55 ml Output Urine Total 1350 ml 1000 ml # Voids 2 General Appearance: no acute distress Respiratory/Chest: lungs clear Cardiovascular: normal rate Microbiology Date/Time Source Procedure Growth Status 08/21/17 09:40 Blood Blood Culture - Preliminary NO GROWTH AFTER 24 HOURS Resulted 08/21/17 09:35 Blood Blood Culture - Preliminary NO GROWTH AFTER 24 HOURS Resulted 08/21/17 11:20 Nasal Nares Influenza Types A,B Antigen (RUBEN) - Final Complete Laboratory Tests 08/23/17 05:45: White Blood Count 10.0, Red Blood Count 4.68L, Hemoglobin 13.1L, Hematocrit 41.3L, Mean Corpuscular Volume 88, Mean Corpuscular Hemoglobin 28.0, Mean Corpuscular Hemoglobin Concent 31.7L, Red Cell Distribution Width 11.9, Platelet Count 69L, Mean Platelet Volume 7.7, Neutrophils (%) (Auto) , Lymphocytes (%) (Auto) , Monocytes (%) (Auto) , Eosinophils (%) (Auto) , Basophils (%) (Auto) , Differential Total Cells Counted 100, Neutrophils % ( Manual) 56, Lymphocytes % (Manual) 33, Monocytes % (Manual) 10, Eosinophils % ( Manual) 1, Basophils % (Manual) 0, Band Neutrophils 0, Platelet Estimate DecreasedL, Platelet Morphology , Clumped Platelets 1+, Sodium Level 136, Potassium Level 4.2, Chloride Level 99, Carbon Dioxide Level 29, Anion Gap 9, Blood Urea Nitrogen 15, Creatinine 1.0, Estimat Glomerular Filtration Rate > 60 , Glucose Level 92, Calcium Level 7.7L, Troponin I 0.143H, Triglycerides Level 84, Cholesterol Level 139, LDL Cholesterol 94, HDL Cholesterol 31L, Cholesterol/ HDL Ratio 4.5H Current Medications Medications (Trade) Dose Ordered Sig/Jameel Route PRN Reason Start Time Stop Time Status Last Admin Dose Admin Acetaminophen (Tylenol) 650 mg Q4H PRN ORAL pain/fever >100 08/22/17 02:30 09/21/17 01:29 08/23/17 14:47 Albuterol/ Ipratropium (Albuterol/ Ipratropium) 3 ml Q4HR PRN HHN Shortness of Breath 08/22/17 05:00 08/27/17 04:59 08/23/17 11:36 Azithromycin (Zithromax) 250 mg DAILY ORAL 08/22/17 09:00 08/29/17 08:59 08/23/17 09:30 Ceftriaxone Sodium 1 gm/ Sodium Chloride 55 ml @ 110 mls/hr Q24H IVPB 08/22/17 09:00 08/29/17 08:59 08/23/17 09:30 Guaifenesin/ Dextromethorphan (Robitussin DM) 5 ml Q4H PRN ORAL For Cough 08/22/17 01:30 09/21/17 01:29 08/23/17 01:04 Regadenoson (Lexiscan) 0.4 mg ONCE PRN IV Stress Test, nutrition services manager to cardio 08/23/17 08:00 08/23/17 23:59 Trimethoprim/ Sulfamethoxazole 15 ml/Dextrose 565 ml @ 376.667 mls/hr [id number] BACTRIM IV 08/23/17 14:00 08/30/17 13:59 08/23/17 14:40 VIDA ARCEO Aug 23, 2017 16:49
[2017-08-23 20:00] VITALS: BP 100/73
--- NOTE | 2017-08-23 20:32 | General Progress Note ---
Assessment/Plan Problem List: (1) HIV (human immunodeficiency virus infection) ICD Codes: B20 - Human immunodeficiency virus [HIV] disease SNOMED: 34285435 (2) NSTEMI (non-ST elevated myocardial infarction) ICD Codes: I21.4 - Non-ST elevation (NSTEMI) myocardial infarction SNOMED: 374611351 (3) Dyspnea ICD Codes: R06.00 - Dyspnea, unspecified SNOMED: 856590823 (4) Hypokalemia ICD Codes: E87.6 - Hypokalemia SNOMED: 68053177 (5) Pneumonia ICD Codes: J18.9 - Pneumonia, unspecified organism SNOMED: 116621255 Status: progressing Assessment/Plan clinically improving afebrile vitals stable lyte abnormailty Subjective ROS Limited/Unobtainable: Yes Allergies: Coded Allergies: No Known Allergies (Verified , 08/23/11) Objective Last 24 Hour Vital Signs Date Time Temp Pulse Resp B/P (MAP) Pulse Ox O2 Delivery O2 Flow Rate FiO2 08/23/17 20:28 Nasal Cannula 3.0 32 08/23/17 20:28 99 20 Nasal Cannula 3.0 32 08/23/17 20:28 32 08/23/17 20:28 93 Nasal Cannula 3.0 32 08/23/17 20:27 99 20 93 Nasal Cannula 3.0 32 08/23/17 20:00 97.9 103 20 100/73 100 08/23/17 16:00 98.8 111 20 132/70 95 Nasal Cannula 2.0 08/23/17 16:00 109 08/23/17 12:00 91 08/23/17 12:00 100.9 111 18 112/54 98 Nasal Cannula 2.0 08/23/17 11:46 96 20 98 Nasal Cannula 2.0 28 08/23/17 11:46 36 08/23/17 11:40 96 20 94 Nasal Cannula 2.0 28 08/23/17 11:36 94 20 Nasal Cannula 2.0 08/23/17 08:00 97 08/23/17 08:00 98.2 98 19 127/70 96 Nasal Cannula 2.0 08/23/17 07:50 Nasal Cannula 2.0 28 08/23/17 07:50 95 20 Nasal Cannula 2.0 08/23/17 07:50 96 Nasal Cannula 2.0 28 08/23/17 04:00 99.5 89 20 112/65 97 08/23/17 04:00 88 08/23/17 02:25 99.0 08/23/17 00:21 100.2 99 20 112/90 93 Room Air 08/23/17 00:00 96 Intake and Output 08/22/17 08/23/17 19:00 07:00 Intake Total 415 ml Output Total 1350 ml 1000 ml Balance -935 ml -1000 ml Intake Oral 360 ml IV Total 55 ml Output Urine Total 1350 ml 1000 ml # Voids 2 Laboratory Tests 08/23/17 05:45: White Blood Count 10.0, Red Blood Count 4.68L, Hemoglobin 13.1L, Hematocrit 41.3L, Mean Corpuscular Volume 88, Mean Corpuscular Hemoglobin 28.0, Mean Corpuscular Hemoglobin Concent 31.7L, Red Cell Distribution Width 11.9, Platelet Count 69L, Mean Platelet Volume 7.7, Neutrophils (%) (Auto) , Lymphocytes (%) (Auto) , Monocytes (%) (Auto) , Eosinophils (%) (Auto) , Basophils (%) (Auto) , Differential Total Cells Counted 100, Neutrophils % ( Manual) 56, Lymphocytes % (Manual) 33, Monocytes % (Manual) 10, Eosinophils % ( Manual) 1, Basophils % (Manual) 0, Band Neutrophils 0, Platelet Estimate DecreasedL, Platelet Morphology , Clumped Platelets 1+, Sodium Level 136, Potassium Level 4.2, Chloride Level 99, Carbon Dioxide Level 29, Anion Gap 9, Blood Urea Nitrogen 15, Creatinine 1.0, Estimat Glomerular Filtration Rate > 60 , Glucose Level 92, Calcium Level 7.7L, Troponin I 0.143H, Triglycerides Level 84, Cholesterol Level 139, LDL Cholesterol 94, HDL Cholesterol 31L, Cholesterol/ HDL Ratio 4.5H Height (Feet): 6 Height (Inches): 2.00 Weight (Pounds): 280 Latisha Crenshaw MD Aug 23, 2017 20:32
[2017-08-23] MEDS: Trimethoprim/Sulfamethoxazole 20 ML in D5W 500ml 550 ML IV SCH (20:48)
[2017-08-24] VITALS: BP 102/63
[2017-08-24] MEDS: Trimethoprim/Sulfamethoxazole 20 ML in D5W 500ml 550 ML IV SCH ×4 (01:50→21:36)
[2017-08-24 04:00] VITALS: BP 109/58
[2017-08-24] MEDS: guaiFENesin DM 100mg/5ml ORAL PRN (06:45)
[2017-08-24 08:00] VITALS: BP 112/59
[2017-08-24] MEDS: Azithromycin 250mg tab ORAL SCH (08:15)
[2017-08-24] MEDS: cefTRIAXone 1 GM in NS 55 ML IVPB SCH (10:06)
[2017-08-24] MEDS: Albuterol/Ipratropium 3ml neb HHN PRN (10:18)
--- NOTE | 2017-08-24 11:08 | Infectious Diseases Prog Note ---
Assessment/Plan Assessment/Plan A; A 1. pneumonia ? 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 thrombocytopenia 4.Elevated LDH P 1. continue ceftriaxone, azithromycin & Bactrim 3. will follow up cultures Subjective ROS Limited/Unobtainable: No Constitutional: Reports: fever, other - Mjpq=[id number] Respiratory: Reports: productive cough, other - chest pain with cough Gastrointestinal/Abdominal: Reports: no symptoms Genitourinary: Reports: no symptoms Allergies: Coded Allergies: No Known Allergies (Verified , 08/23/11) Objective Vital Signs Last 24 Hour Vital Signs Date Time Temp Pulse Resp B/P (MAP) Pulse Ox O2 Delivery O2 Flow Rate FiO2 08/24/17 10:28 94 20 96 Nasal Cannula 3.0 32 08/24/17 10:19 90 24 Nasal Cannula 3.0 32 08/24/17 10:18 32 08/24/17 10:18 90 24 93 Nasal Cannula 3.0 32 08/24/17 08:00 98.2 82 20 112/59 100 Nasal Cannula 2.0 08/24/17 08:00 90 08/24/17 06:40 94 Nasal Cannula 3.0 32 08/24/17 06:40 80 20 Nasal Cannula 3.0 32 08/24/17 06:40 Nasal Cannula 3.0 32 08/24/17 04:48 100.0 08/24/17 04:00 94 08/24/17 04:00 100.0 75 20 109/58 93 08/24/17 00:00 98.2 105 18 102/63 93 08/24/17 00:00 Nasal Cannula 2.0 08/24/17 00:00 104 08/23/17 20:36 102 18 95 Nasal Cannula 3.0 32 08/23/17 20:28 Nasal Cannula 3.0 32 08/23/17 20:28 99 20 Nasal Cannula 3.0 32 08/23/17 20:28 32 08/23/17 20:28 93 Nasal Cannula 3.0 32 08/23/17 20:27 99 20 93 Nasal Cannula 3.0 32 08/23/17 20:00 105 08/23/17 20:00 Nasal Cannula 2.0 08/23/17 20:00 97.9 103 20 100/73 100 08/23/17 16:00 98.8 111 20 132/70 95 Nasal Cannula 2.0 08/23/17 16:00 109 08/23/17 12:00 91 08/23/17 12:00 100.9 111 18 112/54 98 Nasal Cannula 2.0 08/23/17 11:46 96 20 98 Nasal Cannula 2.0 28 08/23/17 11:46 36 08/23/17 11:40 96 20 94 Nasal Cannula 2.0 28 08/23/17 11:36 94 20 Nasal Cannula 2.0 Height (Feet): 6 Height (Inches): 2.00 Weight (Pounds): 280 General Appearance: no acute distress HEENT: mucous membranes moist Respiratory/Chest: lungs clear Cardiovascular: normal rate Abdomen: soft, non tender Extremities: no edema Neurologic/Psychiatric: alert, oriented x 3, responsive Microbiology Date/Time Source Procedure Growth Status 08/21/17 18:50 Nasal Nares MRSA Culture - Final NO METHICILLIN RESISTANT STAPH AUREUS... Complete 08/21/17 11:20 Nasal Nares Influenza Types A,B Antigen (RUBEN) - Final Complete 08/21/17 18:50 Rectum VRE Culture - Final NO VANCOMYCIN RESISTANT ENTEROCOCCUS ... Complete Current Medications Medications (Trade) Dose Ordered Sig/Jameel Route PRN Reason Start Time Stop Time Status Last Admin Dose Admin Acetaminophen (Tylenol) 650 mg Q4H PRN ORAL pain/fever >100 08/22/17 02:30 09/21/17 01:29 08/24/17 03:49 Albuterol/ Ipratropium (Albuterol/ Ipratropium) 3 ml Q4HR PRN HHN Shortness of Breath 08/22/17 05:00 08/27/17 04:59 08/24/17 10:18 Azithromycin (Zithromax) 250 mg DAILY ORAL 08/22/17 09:00 08/29/17 08:59 08/24/17 08:15 Ceftriaxone Sodium 1 gm/ Sodium Chloride 55 ml @ 110 mls/hr Q24H IVPB 08/22/17 09:00 08/29/17 08:59 08/24/17 10:06 Guaifenesin/ Dextromethorphan (Robitussin DM) 5 ml Q4H PRN ORAL For Cough 08/22/17 01:30 09/21/17 01:29 08/24/17 06:45 Trimethoprim/ Sulfamethoxazole 20 ml/Dextrose 570 ml @ 380 mls/hr [id number] BACTRIM IV 08/23/17 20:00 08/30/17 19:59 08/24/17 08:15 NGOZI BORREGO Aug 24, 2017 11:08
[2017-08-24] MEDS ORDERED: Lexiscan 0.4mg/5ml syringe IV PRN (11:30)
[2017-08-24 12:00] VITALS: BP 120/55
--- NOTE | 2017-08-24 13:56 | Pulmonology Progress Note ---
Assessment/Plan Assessment/Plan 1. Dyspnea. 2. Pneumonia, possible pneumocystis, more likely bacterial or viral. 3. Possible acute myocardial infarction. 4. Human immunodeficiency virus, without medication for three months. 5. Thrombocytopenia. 6. Elevated protein level and bilirubin. On Bactrim ID consult reviewed Saturating well on nasal O2 Subjective Interval Events: None Constitutional: Reports: no symptoms HEENT: Repors: no symptoms Respiratory: Reports: no symptoms Cardiovascular: Reports: no symptoms Allergies: Coded Allergies: No Known Allergies (Verified , 08/23/11) Objective Last 24 Hour Vital Signs Date Time Temp Pulse Resp B/P (MAP) Pulse Ox O2 Delivery O2 Flow Rate FiO2 08/24/17 12:00 98.1 101 20 120/55 100 Nasal Cannula 3.0 08/24/17 10:28 94 20 96 Nasal Cannula 3.0 32 08/24/17 10:19 90 24 Nasal Cannula 3.0 32 08/24/17 10:18 32 08/24/17 10:18 90 24 93 Nasal Cannula 3.0 32 08/24/17 08:00 98.2 82 20 112/59 100 Nasal Cannula 2.0 08/24/17 08:00 90 08/24/17 06:40 94 Nasal Cannula 3.0 32 08/24/17 06:40 80 20 Nasal Cannula 3.0 32 08/24/17 06:40 Nasal Cannula 3.0 32 08/24/17 04:48 100.0 08/24/17 04:00 94 08/24/17 04:00 100.0 75 20 109/58 93 08/24/17 00:00 98.2 105 18 102/63 93 08/24/17 00:00 Nasal Cannula 2.0 08/24/17 00:00 104 08/23/17 20:36 102 18 95 Nasal Cannula 3.0 32 08/23/17 20:28 Nasal Cannula 3.0 32 08/23/17 20:28 99 20 Nasal Cannula 3.0 32 08/23/17 20:28 32 08/23/17 20:28 93 Nasal Cannula 3.0 32 08/23/17 20:27 99 20 93 Nasal Cannula 3.0 32 08/23/17 20:00 105 08/23/17 20:00 Nasal Cannula 2.0 08/23/17 20:00 97.9 103 20 100/73 100 08/23/17 16:00 98.8 111 20 132/70 95 Nasal Cannula 2.0 08/23/17 16:00 109 Intake and Output 08/23/17 08/24/17 19:00 07:00 Intake Total 240 ml 1620 ml Output Total 800 ml 800 ml Balance -560 ml 820 ml Intake Oral 240 ml 480 ml IV Total 1140 ml Output Urine Total 800 ml 800 ml # Voids 2 # Bowel Movements 1 General Appearance: no acute distress HEENT: normocephalic Respiratory/Chest: chest wall non-tender, lungs clear Cardiovascular: normal peripheral pulses, normal rate Abdomen: normal bowel sounds, soft, non tender Microbiology Date/Time Source Procedure Growth Status 08/21/17 18:50 Nasal Nares MRSA Culture - Final NO METHICILLIN RESISTANT STAPH AUREUS... Complete 08/21/17 18:50 Rectum VRE Culture - Final NO VANCOMYCIN RESISTANT ENTEROCOCCUS ... Complete Laboratory Tests 08/24/17 12:15: Troponin I 0.030 Current Medications Medications (Trade) Dose Ordered Sig/Jameel Route PRN Reason Start Time Stop Time Status Last Admin Dose Admin Acetaminophen (Tylenol) 650 mg Q4H PRN ORAL pain/fever >100 08/22/17 02:30 09/21/17 01:29 08/24/17 03:49 Albuterol/ Ipratropium (Albuterol/ Ipratropium) 3 ml Q4HR PRN HHN Shortness of Breath 08/22/17 05:00 08/27/17 04:59 08/24/17 10:18 Azithromycin (Zithromax) 250 mg DAILY ORAL 08/22/17 09:00 08/29/17 08:59 08/24/17 08:15 Ceftriaxone Sodium 1 gm/ Sodium Chloride 55 ml @ 110 mls/hr Q24H IVPB 08/22/17 09:00 08/29/17 08:59 08/24/17 10:06 Guaifenesin/ Dextromethorphan (Robitussin DM) 5 ml Q4H PRN ORAL For Cough 08/22/17 01:30 09/21/17 01:29 08/24/17 06:45 Regadenoson (Lexiscan) 0.4 mg ONCE PRN IV Stress Test, automation consultant to cardio 08/24/17 11:30 08/24/17 23:59 Trimethoprim/ Sulfamethoxazole 20 ml/Dextrose 570 ml @ 380 mls/hr [id number] BACTRIM IV 08/23/17 20:00 08/30/17 19:59 08/24/17 13:02 Tung Ray MD Aug 24, 2017 13:56
--- NOTE | 2017-08-24 14:37 | Diagnostic Imaging Report ---
Indication: Chest pain, shortness of breath Technique: IV administration 10.9 mCi 99m technetium. Myoview. Resting SPECT images obtained. No stress exam was performed, as stress imaging was canceled by referring physician Comparison: none Findings: There is a large perfusion defect involving the inferolateral wall extending into the apex. No other perfusion defects are demonstrated. Impression: Large inferolateral and apical perfusion defect, consistent with infarct Unable to assess for ischemia in the absence of resting images
[2017-08-24 16:00] VITALS: BP 111/72
--- NOTE | 2017-08-24 19:05 | Cardiac Electrophysiology PN ---
Assessment/Plan Assessment/Plan 1. Troponin elevation. Levels are flat at 0.3 and 0.3. The patient does not have any chest pain. He underwent an echocardiogram that showed normal left ventricular systolic function. His EKG also showed sinus rhythm with incomplete right bundle-branch block and left axis deviation. Nuclear stress test rescheduled for Sunday again 2. Human immunodeficiency virus. Further evaluation by Infectious Disease. 3. Possible pneumonia. On azithromycin, ceftriaxone, and albuterol. 4. Thrombocytopenia. JUANA RN Subjective Subjective Feeling better. No chest pain or SOB.Stress test was cancelled for high troponin even though repeat troponin is negative. Objective Last 24 Hour Vital Signs Date Time Temp Pulse Resp B/P (MAP) Pulse Ox O2 Delivery O2 Flow Rate FiO2 08/24/17 16:28 98.2 08/24/17 16:00 98.2 105 20 111/72 100 Nasal Cannula 3.0 08/24/17 16:00 67 08/24/17 12:00 98.1 101 20 120/55 100 Nasal Cannula 3.0 08/24/17 12:00 101 08/24/17 10:28 94 20 96 Nasal Cannula 3.0 32 08/24/17 10:19 90 24 Nasal Cannula 3.0 32 08/24/17 10:18 32 08/24/17 10:18 90 24 93 Nasal Cannula 3.0 32 08/24/17 08:00 98.2 82 20 112/59 100 Nasal Cannula 2.0 08/24/17 08:00 90 08/24/17 06:40 94 Nasal Cannula 3.0 32 08/24/17 06:40 80 20 Nasal Cannula 3.0 32 08/24/17 06:40 Nasal Cannula 3.0 32 08/24/17 04:00 94 08/24/17 04:00 100.0 75 20 109/58 93 08/24/17 00:00 98.2 105 18 102/63 93 08/24/17 00:00 Nasal Cannula 2.0 08/24/17 00:00 104 08/23/17 20:36 102 18 95 Nasal Cannula 3.0 32 08/23/17 20:28 Nasal Cannula 3.0 32 08/23/17 20:28 99 20 Nasal Cannula 3.0 32 08/23/17 20:28 32 08/23/17 20:28 93 Nasal Cannula 3.0 32 08/23/17 20:27 99 20 93 Nasal Cannula 3.0 32 08/23/17 20:00 105 08/23/17 20:00 Nasal Cannula 2.0 08/23/17 20:00 97.9 103 20 100/73 100 Intake and Output 08/23/17 08/24/17 19:00 07:00 Intake Total 240 ml 1620 ml Output Total 800 ml 800 ml Balance -560 ml 820 ml Intake Oral 240 ml 480 ml IV Total 1140 ml Output Urine Total 800 ml 800 ml # Voids 2 # Bowel Movements 1 Laboratory Tests Test 08/24/17 12:15 Troponin I 0.030 ng/mL (0.000-0.056) Objective HEAD AND NECK: Showed no JVD. LUNGS: Clear. CARDIOVASCULAR: Tachycardic S1, S2 with no gallop. ABDOMEN: Soft. EXTREMITIES: No pitting edema. CELINA LUNA Aug 24, 2017 19:05
[2017-08-24 20:17] VITALS: BP 110/59
--- NOTE | 2017-08-24 21:12 | General Progress Note ---
Assessment/Plan Problem List: (1) HIV (human immunodeficiency virus infection) ICD Codes: B20 - Human immunodeficiency virus [HIV] disease SNOMED: 80103752 (2) NSTEMI (non-ST elevated myocardial infarction) ICD Codes: I21.4 - Non-ST elevation (NSTEMI) myocardial infarction SNOMED: 400666418 (3) Dyspnea ICD Codes: R06.00 - Dyspnea, unspecified SNOMED: 643518203 (4) Hypokalemia ICD Codes: E87.6 - Hypokalemia SNOMED: 59024119 (5) Pneumonia ICD Codes: J18.9 - Pneumonia, unspecified organism SNOMED: 519808171 Status: progressing Assessment/Plan cad nstemi 'cp improving hiv afebrile no sob Subjective ROS Limited/Unobtainable: Yes Allergies: Coded Allergies: No Known Allergies (Verified , 08/23/11) Objective Last 24 Hour Vital Signs Date Time Temp Pulse Resp B/P (MAP) Pulse Ox O2 Delivery O2 Flow Rate FiO2 08/24/17 20:17 99.4 91 19 110/59 Nasal Cannula 08/24/17 16:28 98.2 08/24/17 16:00 98.2 105 20 111/72 100 Nasal Cannula 3.0 08/24/17 16:00 67 08/24/17 12:00 98.1 101 20 120/55 100 Nasal Cannula 3.0 08/24/17 12:00 101 08/24/17 10:28 94 20 96 Nasal Cannula 3.0 32 08/24/17 10:19 90 24 Nasal Cannula 3.0 32 08/24/17 10:18 32 08/24/17 10:18 90 24 93 Nasal Cannula 3.0 32 08/24/17 08:00 98.2 82 20 112/59 100 Nasal Cannula 2.0 08/24/17 08:00 90 08/24/17 06:40 94 Nasal Cannula 3.0 32 08/24/17 06:40 80 20 Nasal Cannula 3.0 32 08/24/17 06:40 Nasal Cannula 3.0 32 08/24/17 04:00 94 08/24/17 04:00 100.0 75 20 109/58 93 08/24/17 00:00 98.2 105 18 102/63 93 08/24/17 00:00 Nasal Cannula 2.0 08/24/17 00:00 104 Intake and Output 08/23/17 08/24/17 19:00 07:00 Intake Total 240 ml 1620 ml Output Total 800 ml 800 ml Balance -560 ml 820 ml Intake Oral 240 ml 480 ml IV Total 1140 ml Output Urine Total 800 ml 800 ml # Voids 2 # Bowel Movements 1 Laboratory Tests 08/24/17 12:15: Troponin I 0.030 Height (Feet): 6 Height (Inches): 2.00 Weight (Pounds): 280 Latisha Crenshaw MD Aug 24, 2017 21:12
[2017-08-25 00:13] VITALS: BP 111/81
[2017-08-25] MEDS: Trimethoprim/Sulfamethoxazole 20 ML in D5W 500ml 550 ML IV SCH ×4 (02:06→20:04)
[2017-08-25 04:08] VITALS: BP 103/58
[2017-08-25 08:00] VITALS: BP 120/57
[2017-08-25] MEDS: cefTRIAXone 1 GM in NS 55 ML IVPB SCH (09:32)
[2017-08-25] MEDS: Azithromycin 250mg tab ORAL SCH (09:33)
[2017-08-25 12:00] VITALS: BP 107/60
--- NOTE | 2017-08-25 15:00 | Cardiac Electrophysiology PN ---
Assessment/Plan Assessment/Plan 1. Troponin elevation. Levels are flat at 0.3 and 0.3 and last one negative. The patient does not have any chest pain. Echocardiogram that showed normal left ventricular systolic function. His EKG also showed sinus rhythm with incomplete right bundle-branch block and left axis deviation. Nuclear stress test rescheduled for Sunday. 2. Human immunodeficiency virus. Further evaluation by Infectious Disease. 3. Possible pneumonia. On azithromycin, ceftriaxone, and albuterol. 4. Thrombocytopenia. JUANA RN Subjective Subjective Comfortable in NAD. No chest pain or SOB.Stress test was rescheduled for tomorrow. Objective Last 24 Hour Vital Signs Date Time Temp Pulse Resp B/P (MAP) Pulse Ox O2 Delivery O2 Flow Rate FiO2 08/25/17 12:00 99.7 90 18 107/60 96 Nasal Cannula 3.0 08/25/17 09:53 90 24 Nasal Cannula 3.0 32 08/25/17 09:53 95 Nasal Cannula 3.0 32 08/25/17 09:53 Nasal Cannula 3.0 32 08/25/17 08:00 87 08/25/17 08:00 97.4 90 19 120/57 93 Nasal Cannula 3.0 08/25/17 04:08 96.9 86 19 103/58 98 Room Air 08/25/17 04:00 84 08/25/17 00:13 98.1 93 20 111/81 93 Room Air 08/25/17 00:00 94 08/24/17 23:20 98.1 08/24/17 20:17 99.4 91 19 110/59 Nasal Cannula 08/24/17 20:00 92 08/24/17 16:00 98.2 105 20 111/72 100 Nasal Cannula 3.0 08/24/17 16:00 67 Intake and Output 08/24/17 08/25/17 19:00 07:00 Intake Total 1785 ml 570 ml Output Total 1200 ml 800 ml Balance 585 ml -230 ml Intake Oral 590 ml IV Total 1195 ml 570 ml Output Urine Total 1200 ml 800 ml Objective HEAD AND NECK: Showed no JVD. LUNGS: Clear. CARDIOVASCULAR: Tachycardic S1, S2 with no gallop. ABDOMEN: Soft. EXTREMITIES: No pitting edema. CELINA LUNA Aug 25, 2017 15:00
[2017-08-25 16:00] VITALS: BP 124/60
--- NOTE | 2017-08-25 18:55 | Pulmonology Progress Note ---
Assessment/Plan Assessment/Plan 1. Dyspnea. 2. Pneumonia, possible pneumocystis, more likely bacterial or viral. 3. Possible acute myocardial infarction. 4. Human immunodeficiency virus, without medication for three months. 5. Thrombocytopenia. 6. Elevated protein level and bilirubin. On Bactrim fu cxr am nebs and suction titrate o2 to Ra as tolerated repeat labs in am no steoirds at thsi time Subjective Constitutional: Reports: no symptoms HEENT: Repors: no symptoms Respiratory: Reports: no symptoms Cardiovascular: Reports: no symptoms Gastrointestinal/Abdominal: Reports: no symptoms Allergies: Coded Allergies: No Known Allergies (Verified , 08/23/11) Subjective seenand examined awake no distress tolreating po no cp nv or bleeding oob on 4 L supplemental o2 oob positive uop and bm Objective Last 24 Hour Vital Signs Date Time Temp Pulse Resp B/P (MAP) Pulse Ox O2 Delivery O2 Flow Rate FiO2 08/25/17 16:00 80 08/25/17 16:00 97.8 80 20 124/60 97 Nasal Cannula 3.0 08/25/17 14:47 97.2 08/25/17 14:47 97.2 08/25/17 12:00 99.7 90 18 107/60 96 Nasal Cannula 3.0 08/25/17 12:00 91 08/25/17 09:53 90 24 Nasal Cannula 3.0 32 08/25/17 09:53 95 Nasal Cannula 3.0 32 08/25/17 09:53 Nasal Cannula 3.0 32 08/25/17 08:00 87 08/25/17 08:00 97.4 90 19 120/57 93 Nasal Cannula 3.0 08/25/17 04:08 96.9 86 19 103/58 98 Room Air 08/25/17 04:00 84 08/25/17 00:13 98.1 93 20 111/81 93 Room Air 08/25/17 00:00 94 08/24/17 20:17 99.4 91 19 110/59 Nasal Cannula 08/24/17 20:00 92 Intake and Output 08/24/17 08/25/17 19:00 07:00 Intake Total 1785 ml 570 ml Output Total 1200 ml 800 ml Balance 585 ml -230 ml Intake Oral 590 ml IV Total 1195 ml 570 ml Output Urine Total 1200 ml 800 ml General Appearance: WD/WN Respiratory/Chest: rhonchi Cardiovascular: normal rate, regular rhythm Abdomen: soft, non tender, no organomegaly Extremities: no cyanosis, no clubbing Skin: no lesions Neurologic/Psychiatric: oriented x 3, responsive Lymphatic: no neck adenopathy, no groin adenopathy Current Medications Medications (Trade) Dose Ordered Sig/Jameel Route PRN Reason Start Time Stop Time Status Last Admin Dose Admin Acetaminophen (Tylenol) 650 mg Q4H PRN ORAL pain/fever >100 08/22/17 02:30 09/21/17 01:29 08/25/17 13:48 Albuterol/ Ipratropium (Albuterol/ Ipratropium) 3 ml Q4HR PRN HHN Shortness of Breath 08/22/17 05:00 08/27/17 04:59 08/24/17 10:18 Azithromycin (Zithromax) 250 mg DAILY ORAL 08/22/17 09:00 08/29/17 08:59 08/25/17 09:33 Ceftriaxone Sodium 1 gm/ Sodium Chloride 55 ml @ 110 mls/hr Q24H IVPB 08/22/17 09:00 08/29/17 08:59 08/25/17 09:32 Guaifenesin/ Dextromethorphan (Robitussin DM) 5 ml Q4H PRN ORAL For Cough 08/22/17 01:30 09/21/17 01:29 08/24/17 06:45 Ondansetron HCl (Zofran) 4 mg Q6H PRN IVP Nausea & Vomiting 08/25/17 11:15 09/24/17 11:14 08/25/17 11:27 Trimethoprim/ Sulfamethoxazole 20 ml/Dextrose 570 ml @ 380 mls/hr [id number] BACTRIM IV 08/23/17 20:00 08/30/17 19:59 08/25/17 14:20 Current Medications Medications (Trade) Dose Ordered Sig/Jameel Route PRN Reason Start Time Stop Time Status Last Admin Dose Admin Acetaminophen (Tylenol) 650 mg Q4H PRN ORAL pain/fever >100 08/22/17 02:30 09/21/17 01:29 08/25/17 13:48 Albuterol/ Ipratropium (Albuterol/ Ipratropium) 3 ml Q4HR PRN HHN Shortness of Breath 08/22/17 05:00 08/27/17 04:59 08/24/17 10:18 Azithromycin (Zithromax) 250 mg DAILY ORAL 08/22/17 09:00 08/29/17 08:59 08/25/17 09:33 Ceftriaxone Sodium 1 gm/ Sodium Chloride 55 ml @ 110 mls/hr Q24H IVPB 08/22/17 09:00 08/29/17 08:59 08/25/17 09:32 Guaifenesin/ Dextromethorphan (Robitussin DM) 5 ml Q4H PRN ORAL For Cough 08/22/17 01:30 09/21/17 01:29 08/24/17 06:45 Ondansetron HCl (Zofran) 4 mg Q6H PRN IVP Nausea & Vomiting 08/25/17 11:15 09/24/17 11:14 08/25/17 11:27 Trimethoprim/ Sulfamethoxazole 20 ml/Dextrose 570 ml @ 380 mls/hr [id number] BACTRIM IV 08/23/17 20:00 08/30/17 19:59 08/25/17 14:20 COLBY MEEK DO Aug 25, 2017 18:55
[2017-08-25 20:00] VITALS: BP 106/66
--- NOTE | 2017-08-25 21:48 | General Progress Note ---
Assessment/Plan Problem List: (1) HIV (human immunodeficiency virus infection) ICD Codes: B20 - Human immunodeficiency virus [HIV] disease SNOMED: 91280180 (2) NSTEMI (non-ST elevated myocardial infarction) ICD Codes: I21.4 - Non-ST elevation (NSTEMI) myocardial infarction SNOMED: 140425706 (3) Dyspnea ICD Codes: R06.00 - Dyspnea, unspecified SNOMED: 866964880 (4) Hypokalemia ICD Codes: E87.6 - Hypokalemia SNOMED: 52469507 (5) Pneumonia ICD Codes: J18.9 - Pneumonia, unspecified organism SNOMED: 476868975 Status: progressing Assessment/Plan reviewed chart and labs nstemi 'cp improving hiv Subjective ROS Limited/Unobtainable: Yes Allergies: Coded Allergies: No Known Allergies (Verified , 08/23/11) Objective Last 24 Hour Vital Signs Date Time Temp Pulse Resp B/P (MAP) Pulse Ox O2 Delivery O2 Flow Rate FiO2 08/25/17 20:00 100.9 95 22 106/66 92 Nasal Cannula 08/25/17 19:47 Nasal Cannula 3.0 32 08/25/17 19:47 93 Nasal Cannula 3.0 32 08/25/17 19:46 92 20 Nasal Cannula 3.0 32 08/25/17 16:00 80 08/25/17 16:00 97.8 80 20 124/60 97 Nasal Cannula 3.0 08/25/17 14:47 97.2 08/25/17 14:47 97.2 08/25/17 12:00 99.7 90 18 107/60 96 Nasal Cannula 3.0 08/25/17 12:00 91 08/25/17 09:53 90 24 Nasal Cannula 3.0 32 08/25/17 09:53 95 Nasal Cannula 3.0 32 08/25/17 09:53 Nasal Cannula 3.0 32 08/25/17 08:00 87 08/25/17 08:00 97.4 90 19 120/57 93 Nasal Cannula 3.0 08/25/17 04:08 96.9 86 19 103/58 98 Room Air 08/25/17 04:00 84 08/25/17 00:13 98.1 93 20 111/81 93 Room Air 08/25/17 00:00 94 Intake and Output 08/24/17 08/25/17 19:00 07:00 Intake Total 1785 ml 570 ml Output Total 1200 ml 800 ml Balance 585 ml -230 ml Intake Oral 590 ml IV Total 1195 ml 570 ml Output Urine Total 1200 ml 800 ml Height (Feet): 6 Height (Inches): 2.00 Weight (Pounds): 280 Latisha Crenshaw MD Aug 25, 2017 21:48
[2017-08-25] MEDS ORDERED: Tubing IV Secondary IV ONE (22:47)
[2017-08-25] MEDS ORDERED: NS 500ML ONE (22:47)
[2017-08-26] VITALS: BP 104/60
[2017-08-26] MEDS: Trimethoprim/Sulfamethoxazole 20 ML in D5W 500ml 550 ML IV SCH ×4 (02:05→20:30)
[2017-08-26 04:00] VITALS: BP 93/62
[2017-08-26 08:00] VITALS: BP 100/55
[2017-08-26] MEDS: Azithromycin 250mg tab ORAL SCH (08:41)
[2017-08-26 09:21] LABS: ANION GAP 6 mmol/L (5-15); BLOOD UREA NITROGEN 11 mg/dL (7-18); CALCIUM 7.6 MG/DL (8.5-10.1); CARBON DIOXIDE 28 MMOL/L (21-32); CHLORIDE 99 MMOL/L (98-107); CREATININE 1.1 MG/DL (0.55-1.30); POTASSIUM 4.1 MMOL/L (3.5-5.1); SODIUM 133 MMOL/L (136-145)
[2017-08-26 09:40] LABS: HEMATOCRIT 35.7 % (42.0-52.0); HEMOGLOBIN 11.6 G/DL (14.2-18.0); MEAN CORPUSCULAR VOLUME 86 FL (80-99); RED BLOOD COUNT 4.17 M/UL (4.70-6.10); RED CELL DISTRIBUTION WIDTH 11.7 % (11.6-14.8); WHITE BLOOD COUNT 8.2 K/UL (4.8-10.8)
[2017-08-26] MEDS: cefTRIAXone 1 GM in NS 55 ML IVPB SCH (09:55)
[2017-08-26 12:00] VITALS: BP 116/73
--- NOTE | 2017-08-26 12:05 | Infectious Diseases Prog Note ---
Assessment/Plan Assessment/Plan A; A 1. pneumonia ? PCP 2. AIDS CD4= 192 3. thrombocytopenia 4.Elevated LDH P 1. continue ceftriaxone, azithromycin & Bactrim 3. will follow up CXR Subjective ROS Limited/Unobtainable: No Constitutional: Reports: fever, other - Gfcv=406.9, feels better Respiratory: Reports: dry cough Cardiovascular: Reports: no symptoms Gastrointestinal/Abdominal: Reports: no symptoms Genitourinary: Reports: no symptoms Neurologic: Reports: no symptoms Allergies: Coded Allergies: No Known Allergies (Verified , 08/23/11) Objective Vital Signs Last 24 Hour Vital Signs Date Time Temp Pulse Resp B/P (MAP) Pulse Ox O2 Delivery O2 Flow Rate FiO2 08/26/17 05:01 82 08/26/17 04:00 97.8 79 22 93/62 95 Nasal Cannula 08/26/17 00:00 98.1 71 24 104/60 92 Nasal Cannula 2.0 08/25/17 23:50 85 08/25/17 21:24 98.0 08/25/17 20:00 100.9 95 22 106/66 92 Nasal Cannula 08/25/17 19:47 Nasal Cannula 3.0 32 08/25/17 19:47 93 Nasal Cannula 3.0 32 08/25/17 19:46 92 20 Nasal Cannula 3.0 32 08/25/17 19:45 98 08/25/17 16:00 80 08/25/17 16:00 97.8 80 20 124/60 97 Nasal Cannula 3.0 08/25/17 14:47 97.2 Height (Feet): 6 Height (Inches): 2.00 Weight (Pounds): 280 General Appearance: no acute distress HEENT: mucous membranes moist Respiratory/Chest: lungs clear Cardiovascular: normal rate Abdomen: soft, non tender Extremities: no edema Neurologic/Psychiatric: alert, oriented x 3, responsive Laboratory Tests Test 08/26/17 08:00 White Blood Count 8.2 K/UL (4.8-10.8) Red Blood Count 4.17 M/UL (4.70-6.10) L Hemoglobin 11.6 G/DL (14.2-18.0) L Hematocrit 35.7 % (42.0-52.0) L Mean Corpuscular Volume 86 FL (80-99) Mean Corpuscular Hemoglobin 27.9 PG (27.0-31.0) Mean Corpuscular Hemoglobin Concent 32.6 G/DL (32.0-36.0) Red Cell Distribution Width 11.7 % (11.6-14.8) Platelet Count 46 K/UL (150-450) L Mean Platelet Volume 9.4 FL (6.5-10.1) Neutrophils (%) (Auto) % (45.0-75.0) Lymphocytes (%) (Auto) % (20.0-45.0) Monocytes (%) (Auto) % (1.0-10.0) Eosinophils (%) (Auto) % (0.0-3.0) Basophils (%) (Auto) % (0.0-2.0) Neutrophils % (Manual) Pending Lymphocytes % (Manual) Pending Platelet Estimate Pending Platelet Morphology Pending Sodium Level 133 MMOL/L (136-145) L Potassium Level 4.1 MMOL/L (3.5-5.1) Chloride Level 99 MMOL/L (98-107) Carbon Dioxide Level 28 MMOL/L (21-32) Anion Gap 6 mmol/L (5-15) Blood Urea Nitrogen 11 mg/dL (7-18) Creatinine 1.1 MG/DL (0.55-1.30) Estimat Glomerular Filtration Rate > 60 mL/min (>60) Glucose Level 106 MG/DL (74-106) Calcium Level 7.6 MG/DL (8.5-10.1) L Current Medications Medications (Trade) Dose Ordered Sig/Jameel Route PRN Reason Start Time Stop Time Status Last Admin Dose Admin Acetaminophen (Tylenol) 650 mg Q4H PRN ORAL pain/fever >100 08/22/17 02:30 09/21/17 01:29 08/26/17 02:10 Albuterol/ Ipratropium (Albuterol/ Ipratropium) 3 ml Q4HR PRN HHN Shortness of Breath 08/22/17 05:00 08/27/17 04:59 08/24/17 10:18 Azithromycin (Zithromax) 250 mg DAILY ORAL 08/22/17 09:00 08/29/17 08:59 08/26/17 08:41 Ceftriaxone Sodium 1 gm/ Sodium Chloride 55 ml @ 110 mls/hr Q24H IVPB 08/22/17 09:00 08/29/17 08:59 08/26/17 09:55 Guaifenesin/ Dextromethorphan (Robitussin DM) 5 ml Q4H PRN ORAL For Cough 08/22/17 01:30 09/21/17 01:29 08/24/17 06:45 Ondansetron HCl (Zofran) 4 mg Q6H PRN IVP Nausea & Vomiting 08/25/17 11:15 09/24/17 11:14 08/26/17 08:41 Trimethoprim/ Sulfamethoxazole 20 ml/Dextrose 570 ml @ 380 mls/hr [id number] BACTRIM IV 08/23/17 20:00 08/30/17 19:59 08/26/17 08:32 NGOZI BORREGO Aug 26, 2017 12:05
[2017-08-26 13:19] LABS: PLATELET COUNT 132 K/UL (150-450)
[2017-08-26] MEDS ORDERED: Lexiscan 0.4mg/5ml syringe IV PRN (15:00)
--- NOTE | 2017-08-26 15:41 | Cardiac Electrophysiology PN ---
Assessment/Plan Assessment/Plan 1. Troponin elevation. Levels are flat at 0.3 and 0.3 and last one negative. The patient does not have any chest pain. Echocardiogram that showed normal left ventricular systolic function. His EKG also showed sinus rhythm with incomplete right bundle-branch block and left axis deviation. Nuclear stress test rescheduled for Sunday. 2. Human immunodeficiency virus. Further evaluation by Infectious Disease. 3. Possible pneumonia. On azithromycin, ceftriaxone, and albuterol. 4. Thrombocytopenia. JUANA RN Subjective Subjective Comfortable in NAD.Stress test tomorrow. Objective Last 24 Hour Vital Signs Date Time Temp Pulse Resp B/P (MAP) Pulse Ox O2 Delivery O2 Flow Rate FiO2 08/26/17 12:00 83 08/26/17 12:00 97.9 84 19 116/73 98 Nasal Cannula 3.0 08/26/17 10:25 93 Nasal Cannula 3.0 32 08/26/17 10:25 Nasal Cannula 3.0 32 08/26/17 10:25 89 20 Nasal Cannula 3.0 32 08/26/17 08:00 81 08/26/17 08:00 97.4 93 18 100/55 98 Nasal Cannula 3.0 08/26/17 05:01 82 08/26/17 04:00 97.8 79 22 93/62 95 Nasal Cannula 08/26/17 00:00 98.1 71 24 104/60 92 Nasal Cannula 2.0 08/25/17 23:50 85 08/25/17 21:24 98.0 08/25/17 20:00 100.9 95 22 106/66 92 Nasal Cannula 08/25/17 19:47 Nasal Cannula 3.0 32 08/25/17 19:47 93 Nasal Cannula 3.0 32 08/25/17 19:46 92 20 Nasal Cannula 3.0 32 08/25/17 19:45 98 08/25/17 16:00 80 08/25/17 16:00 97.8 80 20 124/60 97 Nasal Cannula 3.0 Intake and Output 08/25/17 08/26/17 19:00 07:00 Intake Total 1431 ml 2156 ml Output Total 100 ml 151 ml Balance 1331 ml 2005 ml Intake Oral 236 ml 636 ml IV Total 1195 ml 1520 ml Output Urine Total 100 ml 150 ml Stool Total 1 ml # Voids 1 Laboratory Tests Test 08/26/17 08:00 White Blood Count 8.2 K/UL (4.8-10.8) Red Blood Count 4.17 M/UL (4.70-6.10) L Hemoglobin 11.6 G/DL (14.2-18.0) L Hematocrit 35.7 % (42.0-52.0) L Mean Corpuscular Volume 86 FL (80-99) Mean Corpuscular Hemoglobin 27.9 PG (27.0-31.0) Mean Corpuscular Hemoglobin Concent 32.6 G/DL (32.0-36.0) Red Cell Distribution Width 11.7 % (11.6-14.8) Platelet Count 132 K/UL (150-450) L Mean Platelet Volume 9.4 FL (6.5-10.1) Neutrophils (%) (Auto) % (45.0-75.0) Lymphocytes (%) (Auto) % (20.0-45.0) Monocytes (%) (Auto) % (1.0-10.0) Eosinophils (%) (Auto) % (0.0-3.0) Basophils (%) (Auto) % (0.0-2.0) Differential Total Cells Counted 100 Neutrophils % (Manual) 61 % (45-75) Lymphocytes % (Manual) 36 % (20-45) Monocytes % (Manual) 2 % (1-10) Eosinophils % (Manual) 1 % (0-3) Basophils % (Manual) 0 % (0-2) Band Neutrophils 0 % (0-8) Platelet Estimate Decreased L Platelet Morphology Clumped Platelets 1+ Red Blood Cell Morphology Normal Sodium Level 133 MMOL/L (136-145) L Potassium Level 4.1 MMOL/L (3.5-5.1) Chloride Level 99 MMOL/L (98-107) Carbon Dioxide Level 28 MMOL/L (21-32) Anion Gap 6 mmol/L (5-15) Blood Urea Nitrogen 11 mg/dL (7-18) Creatinine 1.1 MG/DL (0.55-1.30) Estimat Glomerular Filtration Rate > 60 mL/min (>60) Glucose Level 106 MG/DL (74-106) Calcium Level 7.6 MG/DL (8.5-10.1) L Objective HEAD AND NECK: Showed no JVD. LUNGS: Clear. CARDIOVASCULAR: Tachycardic S1, S2 with no gallop. ABDOMEN: Soft. EXTREMITIES: No pitting edema. CELINA LUNA Aug 26, 2017 15:41
[2017-08-26 16:00] VITALS: BP 108/71
--- NOTE | 2017-08-26 16:00 | Pulmonology Progress Note ---
Assessment/Plan Assessment/Plan 1. Dyspnea. 2. Pneumonia, possible pneumocystis, more likely bacterial or viral. 3. Possible acute myocardial infarction. 4. Human immunodeficiency virus, without medication for three months. 5. Thrombocytopenia. 6. Elevated protein level and bilirubin. On Bactrim fu cxr, unable to view, no report available stress test in am nebs and suction titrate o2 to Ra as tolerated repeat labs in am no steroids at this time Subjective Constitutional: Reports: no symptoms HEENT: Repors: no symptoms Respiratory: Reports: dry cough, shortness of breath Cardiovascular: Reports: no symptoms Gastrointestinal/Abdominal: Reports: no symptoms Genitourinary: Reports: no symptoms Allergies: Coded Allergies: No Known Allergies (Verified , 08/23/11) Subjective seen and examined awake no distress NPO and nausea today no cp or bleeding oob on3L supplemental o2 desatus when turned off oob positive uop and bm Objective Last 24 Hour Vital Signs Date Time Temp Pulse Resp B/P (MAP) Pulse Ox O2 Delivery O2 Flow Rate FiO2 08/26/17 12:00 83 08/26/17 12:00 97.9 84 19 116/73 98 Nasal Cannula 3.0 08/26/17 10:25 93 Nasal Cannula 3.0 32 08/26/17 10:25 Nasal Cannula 3.0 32 08/26/17 10:25 89 20 Nasal Cannula 3.0 32 08/26/17 08:00 81 08/26/17 08:00 97.4 93 18 100/55 98 Nasal Cannula 3.0 08/26/17 05:01 82 08/26/17 04:00 97.8 79 22 93/62 95 Nasal Cannula 08/26/17 00:00 98.1 71 24 104/60 92 Nasal Cannula 2.0 08/25/17 23:50 85 08/25/17 21:24 98.0 08/25/17 20:00 100.9 95 22 106/66 92 Nasal Cannula 08/25/17 19:47 Nasal Cannula 3.0 32 08/25/17 19:47 93 Nasal Cannula 3.0 32 08/25/17 19:46 92 20 Nasal Cannula 3.0 32 08/25/17 19:45 98 08/25/17 16:00 80 08/25/17 16:00 97.8 80 20 124/60 97 Nasal Cannula 3.0 Intake and Output 08/25/17 08/26/17 19:00 07:00 Intake Total 1431 ml 2156 ml Output Total 100 ml 151 ml Balance 1331 ml 2005 ml Intake Oral 236 ml 636 ml IV Total 1195 ml 1520 ml Output Urine Total 100 ml 150 ml Stool Total 1 ml # Voids 1 General Appearance: WD/WN Respiratory/Chest: crackles/rales, rhonchi Cardiovascular: normal rate, regular rhythm Abdomen: soft, non tender, no organomegaly Extremities: no cyanosis Skin: no rash Neurologic/Psychiatric: alert, oriented x 3 Laboratory Tests 08/26/17 08:00: White Blood Count 8.2, Red Blood Count 4.17L, Hemoglobin 11.6L, Hematocrit 35.7L , Mean Corpuscular Volume 86, Mean Corpuscular Hemoglobin 27.9, Mean Corpuscular Hemoglobin Concent 32.6, Red Cell Distribution Width 11.7, Platelet Count 132L, Mean Platelet Volume 9.4, Neutrophils (%) (Auto) , Lymphocytes (%) ( Auto) , Monocytes (%) (Auto) , Eosinophils (%) (Auto) , Basophils (%) (Auto) , Differential Total Cells Counted 100, Neutrophils % (Manual) 61, Lymphocytes % ( Manual) 36, Monocytes % (Manual) 2, Eosinophils % (Manual) 1, Basophils % ( Manual) 0, Band Neutrophils 0, Platelet Estimate DecreasedL, Platelet Morphology , Clumped Platelets 1+, Red Blood Cell Morphology Normal, Sodium Level 133L, Potassium Level 4.1, Chloride Level 99, Carbon Dioxide Level 28, Anion Gap 6, Blood Urea Nitrogen 11, Creatinine 1.1, Estimat Glomerular Filtration Rate > 60, Glucose Level 106, Calcium Level 7.6L Current Medications Medications (Trade) Dose Ordered Sig/Jameel Route PRN Reason Start Time Stop Time Status Last Admin Dose Admin Acetaminophen (Tylenol) 650 mg Q4H PRN ORAL pain/fever >100 08/22/17 02:30 09/21/17 01:29 08/26/17 15:20 Albuterol/ Ipratropium (Albuterol/ Ipratropium) 3 ml Q4HR PRN HHN Shortness of Breath 08/22/17 05:00 08/27/17 04:59 08/24/17 10:18 Azithromycin (Zithromax) 250 mg DAILY ORAL 08/22/17 09:00 08/29/17 08:59 08/26/17 08:41 Ceftriaxone Sodium 1 gm/ Sodium Chloride 55 ml @ 110 mls/hr Q24H IVPB 08/22/17 09:00 08/29/17 08:59 08/26/17 09:55 Guaifenesin/ Dextromethorphan (Robitussin DM) 5 ml Q4H PRN ORAL For Cough 08/22/17 01:30 09/21/17 01:29 08/24/17 06:45 Ondansetron HCl (Zofran) 4 mg Q6H PRN IVP Nausea & Vomiting 08/25/17 11:15 09/24/17 11:14 08/26/17 08:41 Regadenoson (Lexiscan) 0.4 mg ONCE PRN IV Stress Test, online content developer to cardio 08/26/17 15:00 08/27/17 23:59 Trimethoprim/ Sulfamethoxazole 20 ml/Dextrose 570 ml @ 380 mls/hr [id number] BACTRIM IV 08/23/17 20:00 08/30/17 19:59 08/26/17 13:50 COLBY MEEK DO Aug 26, 2017 16:00
[2017-08-26 20:00] VITALS: BP 107/59
--- NOTE | 2017-08-26 20:05 | General Progress Note ---
Assessment/Plan Problem List: (1) HIV (human immunodeficiency virus infection) ICD Codes: B20 - Human immunodeficiency virus [HIV] disease SNOMED: 18754754 (2) NSTEMI (non-ST elevated myocardial infarction) ICD Codes: I21.4 - Non-ST elevation (NSTEMI) myocardial infarction SNOMED: 910623770 (3) Dyspnea ICD Codes: R06.00 - Dyspnea, unspecified SNOMED: 211614873 (4) Hypokalemia ICD Codes: E87.6 - Hypokalemia SNOMED: 07554523 (5) Pneumonia ICD Codes: J18.9 - Pneumonia, unspecified organism SNOMED: 456027556 Status: progressing Assessment/Plan cad nstemi 'cp improving hiv afebrile vitals stable Subjective ROS Limited/Unobtainable: Yes Allergies: Coded Allergies: No Known Allergies (Verified , 08/23/11) Objective Last 24 Hour Vital Signs Date Time Temp Pulse Resp B/P (MAP) Pulse Ox O2 Delivery O2 Flow Rate FiO2 08/26/17 16:19 99.5 08/26/17 16:00 81 08/26/17 16:00 99.9 86 19 108/71 95 Nasal Cannula 2.0 08/26/17 12:00 83 08/26/17 12:00 97.9 84 19 116/73 98 Nasal Cannula 3.0 08/26/17 10:25 93 Nasal Cannula 3.0 32 08/26/17 10:25 Nasal Cannula 3.0 32 08/26/17 10:25 89 20 Nasal Cannula 3.0 32 08/26/17 08:00 81 08/26/17 08:00 97.4 93 18 100/55 98 Nasal Cannula 3.0 08/26/17 05:01 82 08/26/17 04:00 97.8 79 22 93/62 95 Nasal Cannula 08/26/17 00:00 98.1 71 24 104/60 92 Nasal Cannula 2.0 08/25/17 23:50 85 Intake and Output 08/25/17 08/26/17 19:00 07:00 Intake Total 1431 ml 2156 ml Output Total 100 ml 151 ml Balance 1331 ml 2005 ml Intake Oral 236 ml 636 ml IV Total 1195 ml 1520 ml Output Urine Total 100 ml 150 ml Stool Total 1 ml # Voids 1 Laboratory Tests 08/26/17 08:00: White Blood Count 8.2, Red Blood Count 4.17L, Hemoglobin 11.6L, Hematocrit 35.7L , Mean Corpuscular Volume 86, Mean Corpuscular Hemoglobin 27.9, Mean Corpuscular Hemoglobin Concent 32.6, Red Cell Distribution Width 11.7, Platelet Count 132L, Mean Platelet Volume 9.4, Neutrophils (%) (Auto) , Lymphocytes (%) ( Auto) , Monocytes (%) (Auto) , Eosinophils (%) (Auto) , Basophils (%) (Auto) , Differential Total Cells Counted 100, Neutrophils % (Manual) 61, Lymphocytes % ( Manual) 36, Monocytes % (Manual) 2, Eosinophils % (Manual) 1, Basophils % ( Manual) 0, Band Neutrophils 0, Platelet Estimate DecreasedL, Platelet Morphology , Clumped Platelets 1+, Red Blood Cell Morphology Normal, Sodium Level 133L, Potassium Level 4.1, Chloride Level 99, Carbon Dioxide Level 28, Anion Gap 6, Blood Urea Nitrogen 11, Creatinine 1.1, Estimat Glomerular Filtration Rate > 60, Glucose Level 106, Calcium Level 7.6L Height (Feet): 6 Height (Inches): 2.00 Weight (Pounds): 280 EENT: PERRL/EOMI Neck: supple Cardiovascular: normal peripheral pulses Respiratory/Chest: lungs clear Abdomen: soft Latisha Crenshaw MD Aug 26, 2017 20:05
[2017-08-27] VITALS: BP 108/64
[2017-08-27] MEDS: guaiFENesin DM 100mg/5ml ORAL PRN (01:21)
[2017-08-27] MEDS: Trimethoprim/Sulfamethoxazole 20 ML in D5W 500ml 550 ML IV SCH ×4 (02:25→20:07)
[2017-08-27 04:00] VITALS: BP 115/65
[2017-08-27 08:00] VITALS: BP 107/73
--- NOTE | 2017-08-27 08:30 | Consultation ---
DATE OF CONSULTATION: 08/26/2017 HEMATOLOGY/ONCOLOGY CONSULTATION REQUESTING PHYSICIAN: Latisha Crenshaw M.D. REASON FOR CONSULTATION: Evaluation of thrombocytopenia. HISTORY OF PRESENT ILLNESS: Dear Dr. Crenshaw, The patient is a pleasant 52-year-old male with past medical history which is significant for history of HIV, no history of opportunistic infections at this time presented to the ER with fevers and chills, dry cough, and vomiting, noted to have pneumonia. The patient was started on IV antibiotics. As per Infectious Diseases service noted to have thrombocytopenia initially, but has since improved 00:51 Hematology Service consulted for further evaluation and treatment. PAST MEDICAL HISTORY: Includes HIV, migraine, sleep disorder, and sleep apnea. PAST SURGICAL HISTORY: Right knee surgery, left knee surgery, and bilateral arm surgery ALLERGIES: No known drug allergies. SOCIAL HISTORY: He has a history of smoking, history of drug and alcohol abuse. Lives at home by himself.0 FAMILY HISTORY: Noncontributory. REVIEW OF SYSTEMS: A 12-point review of systems completed and otherwise negative. PHYSICAL EXAMINATION: VITAL SIGNS: Reviewed. GENERAL: He is in no distress. PULMONARY: Decreased breath sounds. CARDIOVASCULAR: Regular rate. No S3 or S4. ABDOMEN: Soft, nontender, and nondistended. EXTREMITIES: A 1+ edema. LABORATORY AND DIAGNOSTIC DATA: WBC 8.2, hemoglobin 01:27, and platelet count 132,000. Imaging, SPECT scan completed shows 01:36 defect consistent with infarction. ASSESSMENT AND RECOMMENDATIONS: 1. Thrombocytopenia, acute onset likely secondary to medications. The patient at this time continues to be on Bactrim, which is a potential culprit. Continue given thrombocytopenia has improved. 2. Anemia secondary to chronic disease. Continue to closely monitor. 3. Elevated troponin. Evaluation with Cardiology service. The patient with nuclear stress test for Sunday. 4. Possible pneumonia, on antibiotics. 5. Human immunodeficiency virus. Continue to manage per Infectious Diseases service. 6. I appreciate consultation. Johnathan Hernandez M.D. DR: Emelyn JOB#: [id number] CC:
[2017-08-27] MEDS: cefTRIAXone 1 GM in NS 55 ML IVPB SCH (08:53)
[2017-08-27] MEDS: Azithromycin 250mg tab ORAL SCH (08:53)
--- NOTE | 2017-08-27 09:35 | Pulmonology Progress Note ---
Assessment/Plan Assessment/Plan 1. Dyspnea. 2. Pneumonia, possible pneumocystis, more likely bacterial or viral. 3. Possible acute myocardial infarction. 4. Human immunodeficiency virus, without medication for three months. 5. Thrombocytopenia. 6. Elevated protein level and bilirubin. On Bactrim fu cxr stress test today nebs and suction titrate o2 to Ra as tolerated repeat labs in am no steroids at this time Subjective Interval Events: Looking better Constitutional: Reports: no symptoms HEENT: Repors: no symptoms Respiratory: Reports: no symptoms Cardiovascular: Reports: no symptoms Gastrointestinal/Abdominal: Reports: no symptoms Allergies: Coded Allergies: No Known Allergies (Verified , 08/23/11) Objective Last 24 Hour Vital Signs Date Time Temp Pulse Resp B/P (MAP) Pulse Ox O2 Delivery O2 Flow Rate FiO2 08/27/17 08:00 98.1 82 20 107/73 100 Nasal Cannula 1.0 08/27/17 04:00 98.4 70 20 115/65 95 Nasal Cannula 2.0 08/27/17 04:00 96 Nasal Cannula 2.0 08/27/17 03:47 76 08/27/17 00:00 95 Nasal Cannula 2.0 08/27/17 00:00 98.6 85 20 108/64 93 Nasal Cannula 2.0 08/26/17 23:56 81 08/26/17 20:17 84 08/26/17 20:00 98.6 71 20 107/59 95 Nasal Cannula 2.0 08/26/17 20:00 95 Nasal Cannula 2.0 08/26/17 19:05 95 Nasal Cannula 3.0 32 08/26/17 19:05 79 20 Nasal Cannula 3.0 32 08/26/17 19:05 Nasal Cannula 3.0 32 08/26/17 16:19 99.5 08/26/17 16:00 81 08/26/17 16:00 99.9 86 19 108/71 95 Nasal Cannula 2.0 08/26/17 12:00 83 08/26/17 12:00 97.9 84 19 116/73 98 Nasal Cannula 3.0 08/26/17 10:25 93 Nasal Cannula 3.0 32 08/26/17 10:25 Nasal Cannula 3.0 32 08/26/17 10:25 89 20 Nasal Cannula 3.0 32 Intake and Output 08/26/17 08/27/17 19:00 07:00 Intake Total 1903 ml 1140 ml Output Total 1200 ml Balance 703 ml 1140 ml Intake Oral 708 ml IV Total 1195 ml 1140 ml Output Urine Total 600 ml Stool Total 600 ml # Voids 4 3 # Bowel Movements 1 General Appearance: no acute distress HEENT: normocephalic Respiratory/Chest: chest wall non-tender, lungs clear Cardiovascular: normal peripheral pulses, normal rate Current Medications Medications (Trade) Dose Ordered Sig/Jameel Route PRN Reason Start Time Stop Time Status Last Admin Dose Admin Acetaminophen (Tylenol) 650 mg Q4H PRN ORAL pain/fever >100 08/22/17 02:30 09/21/17 01:29 08/27/17 00:28 Azithromycin (Zithromax) 250 mg DAILY ORAL 08/22/17 09:00 08/29/17 08:59 08/27/17 08:53 Ceftriaxone Sodium 1 gm/ Sodium Chloride 55 ml @ 110 mls/hr Q24H IVPB 08/22/17 09:00 08/29/17 08:59 08/27/17 08:53 Guaifenesin/ Dextromethorphan (Robitussin DM) 5 ml Q4H PRN ORAL For Cough 08/22/17 01:30 09/21/17 01:29 08/27/17 01:21 Ondansetron HCl (Zofran) 4 mg Q6H PRN IVP Nausea & Vomiting 08/25/17 11:15 09/24/17 11:14 08/26/17 08:41 Regadenoson (Lexiscan) 0.4 mg ONCE PRN IV Stress Test, front of house manager to cardio 08/26/17 15:00 08/27/17 23:59 Trimethoprim/ Sulfamethoxazole 20 ml/Dextrose 570 ml @ 380 mls/hr K2KG-BC BACTRIM IV 08/23/17 20:00 08/30/17 19:59 08/27/17 08:53 Tung Rya MD Aug 27, 2017 09:35
[2017-08-27 12:00] VITALS: BP 122/74
--- NOTE | 2017-08-27 13:13 | Cardiac Electrophysiology PN ---
Assessment/Plan Assessment/Plan 1. Troponin elevation. Levels are flat at 0.3 and 0.3 and last one negative. The patient does not have any chest pain. Echocardiogram that showed normal left ventricular systolic function. His EKG also showed sinus rhythm with incomplete right bundle-branch block and left axis deviation. Nuclear stress test rescheduled for today by Sr Cole. 2. Human immunodeficiency virus. Further evaluation by Infectious Disease. 3. Possible pneumonia. On azithromycin, ceftriaxone, and albuterol. 4. Thrombocytopenia. JUANA RN and parents Subjective Subjective Comfortable in NAD.Stress test pending today. Parents at bedside. Objective Last 24 Hour Vital Signs Date Time Temp Pulse Resp B/P (MAP) Pulse Ox O2 Delivery O2 Flow Rate FiO2 08/27/17 08:00 82 08/27/17 08:00 98.1 82 20 107/73 100 Nasal Cannula 1.0 08/27/17 07:16 93 Room Air 21 08/27/17 07:16 Room Air 08/27/17 07:15 82 20 Room Air 21 08/27/17 04:00 98.4 70 20 115/65 95 Nasal Cannula 2.0 08/27/17 04:00 96 Nasal Cannula 2.0 08/27/17 03:47 76 08/27/17 00:00 95 Nasal Cannula 2.0 08/27/17 00:00 98.6 85 20 108/64 93 Nasal Cannula 2.0 08/26/17 23:56 81 08/26/17 20:17 84 08/26/17 20:00 98.6 71 20 107/59 95 Nasal Cannula 2.0 08/26/17 20:00 95 Nasal Cannula 2.0 08/26/17 19:05 95 Nasal Cannula 3.0 32 08/26/17 19:05 79 20 Nasal Cannula 3.0 32 08/26/17 19:05 Nasal Cannula 3.0 32 08/26/17 16:19 99.5 08/26/17 16:00 81 08/26/17 16:00 99.9 86 19 108/71 95 Nasal Cannula 2.0 Intake and Output 08/26/17 08/27/17 19:00 07:00 Intake Total 1903 ml 1140 ml Output Total 1200 ml Balance 703 ml 1140 ml Intake Oral 708 ml IV Total 1195 ml 1140 ml Output Urine Total 600 ml Stool Total 600 ml # Voids 4 3 # Bowel Movements 1 Objective HEAD AND NECK: Showed no JVD. LUNGS: Clear. CARDIOVASCULAR: Tachycardic S1, S2 with no gallop. ABDOMEN: Soft. EXTREMITIES: No pitting edema. CELINA LUNA Aug 27, 2017 13:13
[2017-08-27 16:00] VITALS: BP 117/71
--- NOTE | 2017-08-27 20:58 | General Progress Note ---
Assessment/Plan Problem List: (1) HIV (human immunodeficiency virus infection) ICD Codes: B20 - Human immunodeficiency virus [HIV] disease SNOMED: 05888870 (2) NSTEMI (non-ST elevated myocardial infarction) ICD Codes: I21.4 - Non-ST elevation (NSTEMI) myocardial infarction SNOMED: 848350162 (3) Dyspnea ICD Codes: R06.00 - Dyspnea, unspecified SNOMED: 872377183 (4) Hypokalemia ICD Codes: E87.6 - Hypokalemia SNOMED: 15761916 (5) Pneumonia ICD Codes: J18.9 - Pneumonia, unspecified organism SNOMED: 534998542 Status: stable, ambulating well Assessment/Plan stress test no cp nstemi treatment per cardiology no sob afebrile Subjective ROS Limited/Unobtainable: Yes Allergies: Coded Allergies: No Known Allergies (Verified , 08/23/11) Objective Last 24 Hour Vital Signs Date Time Temp Pulse Resp B/P (MAP) Pulse Ox O2 Delivery O2 Flow Rate FiO2 08/27/17 19:30 84 20 Room Air 21 08/27/17 19:30 Room Air 21 08/27/17 19:30 94 Room Air 21 08/27/17 16:09 98.2 08/27/17 16:00 99.7 91 18 117/71 96 Nasal Cannula 1.0 08/27/17 16:00 91 08/27/17 12:00 82 08/27/17 12:00 98.2 85 20 122/74 100 Nasal Cannula 1.0 08/27/17 08:00 82 08/27/17 08:00 98.1 82 20 107/73 100 Nasal Cannula 1.0 08/27/17 07:16 93 Room Air 21 08/27/17 07:16 Room Air 08/27/17 07:15 82 20 Room Air 21 08/27/17 04:00 98.4 70 20 115/65 95 Nasal Cannula 2.0 08/27/17 04:00 96 Nasal Cannula 2.0 08/27/17 03:47 76 08/27/17 00:00 95 Nasal Cannula 2.0 08/27/17 00:00 98.6 85 20 108/64 93 Nasal Cannula 2.0 08/26/17 23:56 81 Intake and Output 08/26/17 08/27/17 19:00 07:00 Intake Total 1903 ml 1140 ml Output Total 1200 ml Balance 703 ml 1140 ml Intake Oral 708 ml IV Total 1195 ml 1140 ml Output Urine Total 600 ml Stool Total 600 ml # Voids 4 3 # Bowel Movements 1 Height (Feet): 6 Height (Inches): 2.00 Weight (Pounds): 280 Latisha Crenshaw MD Aug 27, 2017 20:58
--- NOTE | 2017-08-27 21:48 | Diagnostic Imaging Report ---
Indication: Dyspnea Comparison: 08/26/2017 A single view chest radiograph was obtained. Findings: Heart size is normal and stable. Patchy bilateral infiltrates again noted. Findings are unchanged. IMPRESSION: No change manager the last day
--- NOTE | 2017-08-27 21:49 | Diagnostic Imaging Report ---
Indication: chest pain Technique: The study was conducted under the supervision of a supervisor engine repair. lexiscan (regadenoson) infusion over 10 seconds followed by intravenous administration of 32.4 mCi of technetium 99m Myoview was performed. Three plane SPECT imaging of the heart was then performed. A resting study was performed as part of the one-day protocol with 9.5 mCi of technetium 99m myoview injected intravenously at that time. Three plane SPECT imaging of the heart was obtained. Comparison: None Clinical data: 1. Clinical response: Non ischemic 2. Electrocardiographic response: Non ischemic Findings: The myocardial perfusion scan demonstrates apparent hypoperfusion to the inferior wall. Findings may be due to diaphragmatic attenuation which is suspected. LVEF is 74% IMPRESSION: No definite evidence of myocardial ischemia. Inferior wall infarct versus diaphragmatic attenuation, which is favored. Please correlate clinically.
--- NOTE | 2017-08-27 22:33 | General Progress Note ---
Assessment/Plan Status: unchanged Assessment/Plan 1. Thrombocytopenia, acute onset likely secondary to medications. The patient at this time continues to be on Bactrim, which is a potential culprit. Continue given thrombocytopenia has improved. 2. Anemia secondary to chronic disease. Continue to closely monitor. 3. Elevated troponin. Evaluation with Cardiology service. The patient with nuclear stress test for Sunday. 4. Possible pneumonia, on antibiotics. 5. Human immunodeficiency virus. Continue to manage per Infectious Diseases service. Subjective Date patient seen: Aug 27, 2017 Constitutional: Denies: no symptoms, chills, diaphoresis, fever, malaise, weakness, other HEENT: Denies: no symptoms, eye pain, blurred vision, tearing, double vision, ear pain, ear discharge, nose pain, nose congestion, throat pain, throat swelling, mouth pain, mouth swelling, other Cardiovascular: Denies: no symptoms, chest pain, edema, irregular heart rate, lightheadedness, palpitations, syncope, other Respiratory: Denies: no symptoms, cough, orthopnea, shortness of breath, SOB with excertion, SOB at rest, sputum, stridor, wheezing, other Gastrointestinal/Abdominal: Denies: no symptoms, abdomen distended, abdominal pain, black stools, tarry stools, blood in stool, constipated, diarrhea, difficulty swallowing, nausea, poor appetite, poor fluid intake, rectal bleeding , vomiting, other Genitourinary: Denies: no symptoms, burning, discharge, frequency, flank pain, hematuria, incontinence, pain, urgency, other Hematologic/Lymphatic: Reports: anemia, other - Leukopenia Allergies: Coded Allergies: No Known Allergies (Verified , 08/23/11) Subjective Anemia stable. On antibiotics. NAD. Objective Last 24 Hour Vital Signs Date Time Temp Pulse Resp B/P (MAP) Pulse Ox O2 Delivery O2 Flow Rate FiO2 08/27/17 20:00 99.5 86 20 97 08/27/17 19:30 84 20 Room Air 21 08/27/17 19:30 Room Air 21 08/27/17 19:30 94 Room Air 21 08/27/17 16:09 98.2 08/27/17 16:00 99.7 91 18 117/71 96 Nasal Cannula 1.0 08/27/17 16:00 91 08/27/17 12:00 82 08/27/17 12:00 98.2 85 20 122/74 100 Nasal Cannula 1.0 08/27/17 08:00 82 08/27/17 08:00 98.1 82 20 107/73 100 Nasal Cannula 1.0 08/27/17 07:16 93 Room Air 21 08/27/17 07:16 Room Air 08/27/17 07:15 82 20 Room Air 21 08/27/17 04:00 98.4 70 20 115/65 95 Nasal Cannula 2.0 08/27/17 04:00 96 Nasal Cannula 2.0 08/27/17 03:47 76 08/27/17 00:00 95 Nasal Cannula 2.0 08/27/17 00:00 98.6 85 20 108/64 93 Nasal Cannula 2.0 08/26/17 23:56 81 Intake and Output 08/26/17 08/27/17 19:00 07:00 Intake Total 1903 ml 1140 ml Output Total 1200 ml Balance 703 ml 1140 ml Intake Oral 708 ml IV Total 1195 ml 1140 ml Output Urine Total 600 ml Stool Total 600 ml # Voids 4 3 # Bowel Movements 1 Labs Test 08/26/17 08:00 White Blood Count 8.2 K/UL (4.8-10.8) Red Blood Count 4.17 M/UL (4.70-6.10) Hemoglobin 11.6 G/DL (14.2-18.0) Hematocrit 35.7 % (42.0-52.0) Mean Corpuscular Volume 86 FL (80-99) Mean Corpuscular Hemoglobin 27.9 PG (27.0-31.0) Mean Corpuscular Hemoglobin Concent 32.6 G/DL (32.0-36.0) Red Cell Distribution Width 11.7 % (11.6-14.8) Platelet Count 132 K/UL (150-450) Mean Platelet Volume 9.4 FL (6.5-10.1) Neutrophils (%) (Auto) % (45.0-75.0) Lymphocytes (%) (Auto) % (20.0-45.0) Monocytes (%) (Auto) % (1.0-10.0) Eosinophils (%) (Auto) % (0.0-3.0) Basophils (%) (Auto) % (0.0-2.0) Differential Total Cells Counted 100 Neutrophils % (Manual) 61 % (45-75) Lymphocytes % (Manual) 36 % (20-45) Monocytes % (Manual) 2 % (1-10) Eosinophils % (Manual) 1 % (0-3) Basophils % (Manual) 0 % (0-2) Band Neutrophils 0 % (0-8) Platelet Estimate Decreased Platelet Morphology Clumped Platelets 1+ Red Blood Cell Morphology Normal Sodium Level 133 MMOL/L (136-145) Potassium Level 4.1 MMOL/L (3.5-5.1) Chloride Level 99 MMOL/L (98-107) Carbon Dioxide Level 28 MMOL/L (21-32) Anion Gap 6 mmol/L (5-15) Blood Urea Nitrogen 11 mg/dL (7-18) Creatinine 1.1 MG/DL (0.55-1.30) Estimat Glomerular Filtration Rate > 60 mL/min (>60) Glucose Level 106 MG/DL (74-106) Calcium Level 7.6 MG/DL (8.5-10.1) Height (Feet): 6 Height (Inches): 2.00 Weight (Pounds): 280 General Appearance: no apparent distress EENT: normal ENT inspection Neck: normal alignment, supple Respiratory/Chest: lungs clear, decreased breath sounds Abdomen: normal bowel sounds, non tender, soft Johnathan Hernandez Aug 27, 2017 22:33
[2017-08-28] VITALS: BP 108/66
[2017-08-28] MEDS: guaiFENesin DM 100mg/5ml ORAL PRN (00:09)
[2017-08-28] MEDS: Trimethoprim/Sulfamethoxazole 20 ML in D5W 500ml 550 ML IV SCH ×2 (01:14→08:36)
[2017-08-28 04:00] VITALS: BP 116/60
[2017-08-28 08:00] VITALS: BP 108/70
[2017-08-28] MEDS: cefTRIAXone 1 GM in NS 55 ML IVPB SCH (08:36)
[2017-08-28] MEDS: Azithromycin 250mg tab ORAL SCH (08:42)
--- NOTE | 2017-08-28 09:47 | Pulmonology Progress Note ---
Assessment/Plan Assessment/Plan 1. Dyspnea. 2. Pneumonia, possible pneumocystis, more likely bacterial or viral. 3. Possible acute myocardial infarction. 4. Human immunodeficiency virus, without medication for three months. 5. Thrombocytopenia. 6. Elevated protein level and bilirubin. On Bactrim fu cxr shows no change; has patchy bilateral infiltrates stress test noted; non-ischemic nebs and suction titrate o2 to Ra as tolerated no steroids at this time Subjective Interval Events: Comfortable; SaO2 94% on 2L/min O2 Constitutional: Reports: no symptoms HEENT: Repors: no symptoms Respiratory: Reports: no symptoms Cardiovascular: Reports: no symptoms Gastrointestinal/Abdominal: Reports: no symptoms Allergies: Coded Allergies: No Known Allergies (Verified , 08/23/11) Objective Last 24 Hour Vital Signs Date Time Temp Pulse Resp B/P (MAP) Pulse Ox O2 Delivery O2 Flow Rate FiO2 08/28/17 08:00 92 08/28/17 08:00 99.7 88 20 108/70 92 Room Air 08/28/17 04:00 83 08/28/17 04:00 98.1 86 18 116/60 93 Nasal Cannula 08/28/17 00:00 99.5 89 20 108/66 97 Nasal Cannula 08/28/17 00:00 88 08/27/17 20:00 99.5 86 20 97 08/27/17 20:00 86 08/27/17 19:30 84 20 Room Air 21 08/27/17 19:30 Room Air 21 08/27/17 19:30 94 Room Air 21 08/27/17 16:09 98.2 08/27/17 16:00 99.7 91 18 117/71 96 Nasal Cannula 1.0 08/27/17 16:00 91 08/27/17 12:00 82 08/27/17 12:00 98.2 85 20 122/74 100 Nasal Cannula 1.0 Intake and Output 08/27/17 08/28/17 19:00 07:00 Intake Total 250 ml 800 ml Output Total 1000 ml 700 ml Balance -750 ml 100 ml Intake Oral 250 ml 800 ml Output Urine Total 1000 ml 700 ml # Bowel Movements 1 2 General Appearance: no acute distress HEENT: normocephalic Respiratory/Chest: chest wall non-tender, lungs clear Cardiovascular: normal peripheral pulses, normal rate Abdomen: normal bowel sounds Current Medications Medications (Trade) Dose Ordered Sig/Jameel Route PRN Reason Start Time Stop Time Status Last Admin Dose Admin Acetaminophen (Tylenol) 650 mg Q4H PRN ORAL pain/fever >100 08/22/17 02:30 09/21/17 01:29 08/28/17 08:42 Azithromycin (Zithromax) 250 mg DAILY ORAL 08/22/17 09:00 08/29/17 08:59 08/28/17 08:42 Ceftriaxone Sodium 1 gm/ Sodium Chloride 55 ml @ 110 mls/hr Q24H IVPB 08/22/17 09:00 08/29/17 08:59 08/28/17 08:36 Guaifenesin/ Dextromethorphan (Robitussin DM) 5 ml Q4H PRN ORAL For Cough 08/22/17 01:30 09/21/17 01:29 08/28/17 00:09 Ondansetron HCl (Zofran) 4 mg Q6H PRN IVP Nausea & Vomiting 08/25/17 11:15 09/24/17 11:14 08/26/17 08:41 Trimethoprim/ Sulfamethoxazole 20 ml/Dextrose 570 ml @ 380 mls/hr [id number] BACTRIM IV 08/23/17 20:00 08/30/17 19:59 08/28/17 08:36 Tung Ray MD Aug 28, 2017 09:47
--- NOTE | 2017-08-28 11:58 | Infectious Diseases Prog Note ---
Assessment/Plan Assessment/Plan A; A 1. pneumonia ? PCP 2. AIDS CD4= 192 3. thrombocytopenia 4.Elevated LDH P 1. discontinue ceftriaxone, azithromycin 2. Continue oral Bactrim x2 weeks for PCP treatment 3. Refer to HIV clinic Subjective ROS Limited/Unobtainable: No Respiratory: Reports: dry cough Cardiovascular: Reports: no symptoms Gastrointestinal/Abdominal: Reports: no symptoms Allergies: Coded Allergies: No Known Allergies (Verified , 08/23/11) Objective Vital Signs Last 24 Hour Vital Signs Date Time Temp Pulse Resp B/P (MAP) Pulse Ox O2 Delivery O2 Flow Rate FiO2 08/28/17 09:41 98.4 08/28/17 08:00 92 08/28/17 08:00 99.7 88 20 108/70 92 Room Air 08/28/17 07:25 96 Room Air 21 08/28/17 07:25 Room Air 21 08/28/17 07:15 77 20 Room Air 21 08/28/17 04:00 83 08/28/17 04:00 98.1 86 18 116/60 93 Nasal Cannula 08/28/17 00:00 99.5 89 20 108/66 97 Nasal Cannula 08/28/17 00:00 88 08/27/17 20:00 99.5 86 20 97 08/27/17 20:00 86 08/27/17 19:30 84 20 Room Air 21 08/27/17 19:30 Room Air 21 08/27/17 19:30 94 Room Air 21 08/27/17 16:00 99.7 91 18 117/71 96 Nasal Cannula 1.0 08/27/17 16:00 91 08/27/17 12:00 82 08/27/17 12:00 98.2 85 20 122/74 100 Nasal Cannula 1.0 Height (Feet): 6 Height (Inches): 2.00 Weight (Pounds): 280 General Appearance: no acute distress HEENT: mucous membranes moist Respiratory/Chest: lungs clear Cardiovascular: normal rate Abdomen: soft, non tender Extremities: no edema Neurologic/Psychiatric: alert, oriented x 3, responsive Current Medications Medications (Trade) Dose Ordered Sig/Jameel Route PRN Reason Start Time Stop Time Status Last Admin Dose Admin Acetaminophen (Tylenol) 650 mg Q4H PRN ORAL pain/fever >100 08/22/17 02:30 09/21/17 01:29 08/28/17 08:42 Azithromycin (Zithromax) 250 mg DAILY ORAL 08/22/17 09:00 08/29/17 08:59 08/28/17 08:42 Ceftriaxone Sodium 1 gm/ Sodium Chloride 55 ml @ 110 mls/hr Q24H IVPB 08/22/17 09:00 08/29/17 08:59 08/28/17 08:36 Guaifenesin/ Dextromethorphan (Robitussin DM) 5 ml Q4H PRN ORAL For Cough 08/22/17 01:30 09/21/17 01:29 08/28/17 00:09 Ondansetron HCl (Zofran) 4 mg Q6H PRN IVP Nausea & Vomiting 08/25/17 11:15 09/24/17 11:14 08/26/17 08:41 Trimethoprim/ Sulfamethoxazole 20 ml/Dextrose 570 ml @ 380 mls/hr [id number] BACTRIM IV 08/23/17 20:00 08/30/17 19:59 08/28/17 08:36 NGOZI BORREGO Aug 28, 2017 11:58
[2017-08-28] MEDS ORDERED: NS 500ML ONE (13:24)
--- NOTE | 2017-08-28 15:57 | Diagnostic Imaging Report ---
Indication: Cough Technique: XRAY Chest 1v Comparison: 08/21/2017 Findings: Cardiomediastinal silhouette is stable. There is increasing density in the left base. There is again atelectasis in the right base. Slight interstitial prominence and patchy densities are again noted bilaterally. Impression: Increasing density in the left base could represent worsening atelectasis although infiltrate or small pleural effusion not excluded. Clinical correlation/follow-up recommended.
--- NOTE | 2017-08-28 22:37 | General Progress Note ---
Assessment/Plan Status: stable Assessment/Plan 1. Thrombocytopenia, acute onset likely secondary to medications. The patient at this time continues to be on Bactrim, which is a potential culprit. Continue given thrombocytopenia has improved. -->Cont bactrim abx as outpatient 2. Anemia secondary to chronic disease. Continue to closely monitor. --> Hemoglobin stable, blood transfusion not required today. 3. Elevated troponin. Evaluation with Cardiology service. The patient with nuclear stress test for Sunday. 4. Possible pneumonia, on antibiotics. 5. Human immunodeficiency virus. Continue to manage per Infectious Diseases service. --> Awaiting HIV treatment as outpatient Subjective Date patient seen: Aug 28, 2017 Constitutional: Denies: no symptoms, chills, diaphoresis, fever, malaise, weakness, other HEENT: Denies: no symptoms, eye pain, blurred vision, tearing, double vision, ear pain, ear discharge, nose pain, nose congestion, throat pain, throat swelling, mouth pain, mouth swelling, other Cardiovascular: Denies: no symptoms, chest pain, edema, irregular heart rate, lightheadedness, palpitations, syncope, other Respiratory: Denies: no symptoms, cough, orthopnea, shortness of breath, SOB with excertion, SOB at rest, sputum, stridor, wheezing, other Gastrointestinal/Abdominal: Denies: no symptoms, abdomen distended, abdominal pain, black stools, tarry stools, blood in stool, constipated, diarrhea, difficulty swallowing, nausea, poor appetite, poor fluid intake, rectal bleeding , vomiting, other Genitourinary: Denies: no symptoms, burning, discharge, frequency, flank pain, hematuria, incontinence, pain, urgency, other Neurologic/Psychiatric: Denies: no symptoms, anxiety, depressed, emotional problems, headache, numbness, paresthesia, pre-existing deficit, seizure, tingling, tremors, weakness, other Allergies: Coded Allergies: No Known Allergies (Verified , 08/23/11) Subjective On bactrim. Pending discharge. To continue HIV therapy as outpatient. Objective Last 24 Hour Vital Signs Date Time Temp Pulse Resp B/P (MAP) Pulse Ox O2 Delivery O2 Flow Rate FiO2 08/28/17 09:41 98.4 08/28/17 08:00 92 08/28/17 08:00 99.7 88 20 108/70 92 Room Air 08/28/17 07:25 96 Room Air 21 08/28/17 07:25 Room Air 21 08/28/17 07:15 77 20 Room Air 21 08/28/17 04:00 83 08/28/17 04:00 98.1 86 18 116/60 93 Nasal Cannula 08/28/17 00:00 99.5 89 20 108/66 97 Nasal Cannula 08/28/17 00:00 88 Intake and Output 08/27/17 08/28/17 19:00 07:00 Intake Total 250 ml 800 ml Output Total 1000 ml 700 ml Balance -750 ml 100 ml Intake Oral 250 ml 800 ml Output Urine Total 1000 ml 700 ml # Bowel Movements 1 2 Height (Feet): 6 Height (Inches): 2.00 Weight (Pounds): 280 General Appearance: no apparent distress EENT: normal ENT inspection Cardiovascular: normal rate, regular rhythm Respiratory/Chest: lungs clear Abdomen: non tender, no organomegaly Johnathan Hernandez Aug 28, 2017 22:37
--- NOTE | 2017-08-31 12:37 | Discharge Summary ---
Discharge Summary Hospital Course Date of Admission Aug 21, 2017 at 12:27 Date of Discharge Aug 28, 2017 at 13:25 Admitting Diagnosis NON-STEMI CHEST PAIN DEANA Villegas is a 52 year old male who was admitted on Aug 21, 2017 at 12:27 for Non-Stemi/Chest Pain Hospital Course [id number] Discharge Discharge Disposition Patient was discharged to Home (01) Discharge Diagnoses: Zulay Arteaga NP Aug 31, 2017 12:37
--- NOTE | 2017-09-01 03:00 | Discharge Summary 2 SIG ---
DATE OF ADMISSION: 08/21/2017 DATE OF DISCHARGE: 08/28/2017 SPRING UP SUPERVISOR: 1. Johnathan Hernandez M.D. 2. Tim Phillips M.D. 3. Tung Ray M..D. 4. Lexa Smith M.D. BRIEF HOSPITAL COURSE: The patient is a 52-year-old male with history of HIV and three-day shortness of breath and cough, which is nonproductive. The patient has chest pain, which is pleuritic and was worse with deep inspiration, occurring for the past three days. He has history of intermittent migraine headaches and feels very weak and fatigued and has history of sleep apnea. On evaluation at ED, the patient was tachycardic. Chest x-ray showed interstitial infiltrates, mostly on the right. Troponin was mildly elevated to 0.3. He was given aspirin. EKG showed sinus rhythm with incomplete right bundle-branch block and left axis deviation. He was febrile at 100.5 degrees and was given Tylenol. He was then admitted to telemetry for pneumonia and non-ST elevated myocardial infarction. He was started on ceftriaxone and azithromycin. He had unknown T-cell count. T-cell subsets were checked. He had absolute CD4 count of 192. Bactrim was added to his regimen. He was followed by Dr. Phillips. Troponin levels were flat and does not have any chest pain. He had an echocardiogram done that showed normal left ventricular systolic function. He underwent a nuclear stress test on 08/27/2017 with findings of inferior wall infarct, however, no definite evidence of myocardial ischemia. Repeat chest x-ray done showed patchy bilateral infiltrates. He was continued on nebulizer treatment. No indication for steroids at this time. He had been off HIV medications and was advised to continue Bactrim as outpatient and to follow up with [facility] Clinic for HIV treatment. He was eventually discharged home. FINAL DIAGNOSES: 1. Pneumonia, possible PCP. 2. Human immunodeficiency virus. 3. Non-ST elevated myocardial infarction. 4. Hypokalemia. 5. Thrombocytopenia, acute onset, likely secondary to medications. 6. Anemia secondary to chronic disease. 7. Elevated LDH. DISPOSITION: The patient was discharged home. DISCHARGE INSTRUCTIONS: The patient was advised to follow up with [facility], [facility] in [facility] for followup. Latisha Crenshaw M.D. I have been assigned to dictate discharge summary on this account and I was not involved in the patient's management. Zulay Arteaga N.P. DR: AMANDA JOB#: [id number] CC: WINTER
--- NOTE | 2017-09-27 18:03 | Cardiology Report ---
APPROVED REPORT EKG Measurement Heart [id number] Normal sinus rhythm Left axis deviation Incomplete right bundle branch block Abnormal ECG
== END 2017-08-28 13:25 | disposition home or self-care (01) | DRG 974 ==
LOC: EDBD 09:25 → EMR 11:58 → 2E 12:27 → EDBEDREQ 14:37
DX: B59 Pneumocystosis (principal); I21.4 Non-ST elevation (NSTEMI) myocardial infarction; B20 Human immunodeficiency virus [HIV] disease; D69.59 Other secondary thrombocytopenia; I45.10 Unspecified right bundle-branch block; E87.6 Hypokalemia; D63.8 Anemia in other chronic diseases classified elsewhere; R00.0 Tachycardia, unspecified; F12.90 Cannabis use, unspecified, uncomplicated; T37.0X5A Adverse effect of sulfonamides, initial encounter; Y92.230 Patient room in hospital as the place of occurrence of the external cause; Z87.891 Personal history of nicotine dependence
CPT/HCPCS: 36415; 71045; 71260; 78451; 78452; 80048; 80053; 80061; 81003; 82248; 83605; 83615; 84484; 85007; 85025; 86360; 86710; 86713; 86738; 87040; 87081; 87536; 93005; 93017; 93306; 93970; 94640; 94664; 94760; J2405; J2785; J7620; J8499